=== PATIENT | female | born 1965 | race American Indian/Alaskan Native ===

== ENCOUNTER 2021-03-15 03:19 | Inpatient (IN) | payer OTHER ==
[~2021-03-15 03:19] MED LIST: PANTOPRAZOLE 40 MG INJ IV ONE; SODIUM CHLORIDE 0.9% 500 ML 500 ML ONE; dilTIAZem 25 MG/5 ML INJ ONE; dilTIAZem 30 MG TAB ONE
--- NOTE | 2021-03-15 04:33 | Emergency Department Report ---
ED General Adult HPI - General Chief complaint: Weakness Stated complaint: Weakness, fatigue, sinking feeling in my stomach PUI?: No Source: patient, RN notes reviewed Mode of arrival: Stretcher Limitations: No Limitations - History of Present Illness Initial comments: The patient is a 55-year-old female. She is not known to myself previously. She does not have a primary care doctor. She tells me "I do not go to doctors." She does not have long-term medical problems that she is aware of. She presents to the ER with a complaint of malaise, fatigue, weakness, epigastric discomfort. Symptoms present for a few weeks. Denies headache, neck pain, chest pain. Has mild shortness of breath. No hematemesis of bright red blood per rectum. No travel, surgery, immobilization, DVT or pulmonary embolism risk factors. No urinary symptoms. Has not lost taste or smell. Symptoms constant. Worse on physical exertion. They decreased with rest. -: Gradual, week(s) Consistency: constant Improves with: eating, rest Worsens with: movement - Related Data Home Medications Medication Instructions Recorded Confirmed Last Taken No Known Home Medications [No 03/15/21 03/15/21 Unknown Reported Home Medications] Allergies Allergy/AdvReac Type Severity Reaction Status Date / Time No Known Allergies Allergy Verified 03/15/21 05:50 ED Review of Systems ROS: Stated complaint: Other details as noted in HPI Constitutional: malaise, weakness Eyes: denies: eye discharge ENT: denies: epistaxis Respiratory: denies: cough Cardiovascular: palpitations. denies: chest pain, syncope Gastrointestinal: denies: hematemesis, melena, hematochezia Genitourinary: denies: dysuria Musculoskeletal: denies: back pain Neurological: weakness Psychiatric: anxiety Hematological/Lymphatic: denies: easy bleeding ED Past Medical Hx - Medications Home Medications: Home Medications Medication Instructions Recorded Confirmed Last Taken Type No Known Home Medications [No 03/15/21 03/15/21 Unknown History Reported Home Medications] ED Physical Exam - General Limitations: No Limitations General appearance: alert, anxious - Head Head exam: Present: atraumatic, normocephalic - Eye Eye exam: Present: normal appearance, EOMI. Absent: nystagmus - ENT ENT exam: Present: normal exam, normal orophraynx, mucous membranes moist, normal external ear exam - Neck Neck exam: Present: normal inspection, full ROM. Absent: tenderness, meningismus - Respiratory Respiratory exam: Present: normal lung sounds bilaterally. Absent: respiratory distress, wheezes, rales, rhonchi, stridor, decreased breath sounds - Cardiovascular Cardiovascular Exam: Present: tachycardia, irregular rhythm. Absent: systolic murmur, diastolic murmur, rubs, gallop - GI/Abdominal GI/Abdominal exam: Present: soft. Absent: distended, tenderness, guarding, rebound, rigid, pulsatile mass - Extremities Exam Extremities exam: Present: normal inspection, full ROM, other (2+ pulses noted in the bilateral upper and lower extremities. There is no palpable cord. negative Homans sign. Muscular compartments are soft. The pelvis is stable.). Absent: pedal edema, calf tenderness - Back Exam Back exam: Present: normal inspection, full ROM. Absent: tenderness, CVA tenderness (R), CVA tenderness (L), paraspinal tenderness, vertebral tenderness - Neurological Exam Neurological exam: Present: alert, oriented X3, other (No facial droop. Tongue midline. Extraocular movements intact bilaterally. Facial sensation intact to light touch in V1, V2, V3 distribution bilaterally. 5 and a 5 strength in 4 extremities. Sensation intact to light touch in 4 extremities.). Absent: motor sensory deficit - Psychiatric Psychiatric exam: Present: anxious - Skin Skin exam: Present: warm, dry, intact, normal color. Absent: rash ED Course Vital Signs 03/15/21 03/15/21 03/15/21 02:15 02:30 02:46 Temperature Pulse Rate 128 H 121 H 118 H Respiratory 19 17 25 H Rate Blood Pressure 146/117 146/117 156/119 Blood Pressure [Left] O2 Sat by Pulse 97 99 98 Oximetry 03/15/21 03/15/21 03/15/21 03:00 03:16 03:20 Temperature 97.8 F Pulse Rate 143 H 139 H 135 H Respiratory 21 23 24 Rate Blood Pressure 147/116 145/115 Blood Pressure 157/74 [Left] O2 Sat by Pulse 99 99 96 Oximetry 03/15/21 03/15/21 03/15/21 03:30 03:45 04:01 Temperature Pulse Rate 93 H 60 65 Respiratory 30 H 21 23 Rate Blood Pressure 157/124 156/119 132/94 Blood Pressure [Left] O2 Sat by Pulse 97 98 96 Oximetry 03/15/21 03/15/21 03/15/21 04:15 04:31 04:45 Temperature Pulse Rate 80 71 88 Respiratory 23 23 23 Rate Blood Pressure 120/85 130/92 127/95 Blood Pressure [Left] O2 Sat by Pulse 95 96 95 Oximetry 03/15/21 03/15/21 03/15/21 05:01 05:15 05:30 Temperature Pulse Rate 91 H 88 110 H Respiratory 21 22 19 Rate Blood Pressure 135/93 120/93 120/93 Blood Pressure [Left] O2 Sat by Pulse 95 96 100 Oximetry 03/15/21 03/15/21 03/15/21 06:01 06:15 06:31 Temperature Pulse Rate 76 88 87 Respiratory 23 22 22 Rate Blood Pressure 141/92 141/102 139/94 Blood Pressure [Left] O2 Sat by Pulse 98 96 95 Oximetry 03/15/21 03/15/21 03/15/21 06:45 07:15 07:31 Temperature Pulse Rate 90 92 H 93 H Respiratory 21 23 19 Rate Blood Pressure 137/101 150/114 140/111 Blood Pressure [Left] O2 Sat by Pulse 95 98 98 Oximetry 03/15/21 03/15/21 03/15/21 07:45 08:01 08:05 Temperature Pulse Rate 141 H 105 H 122 H Respiratory 23 25 H Rate Blood Pressure 140/102 139/100 Blood Pressure [Left] O2 Sat by Pulse 92 97 Oximetry - Reevaluation(s) Reevaluation #1: 03/15/21 05:22 Tachycardia resolved. Blood pressure acceptable. Hospital physician, Dr. Judy Albert to admit to [facility] ED Medical Decision Making - Lab Data Result diagrams: 03/15/21 03:00 03/15/21 03:00 Sodium: 136/potassium: 4.74/chloride: 104.2/CO2 20/BUN: 14/creatinine 0.6/glucose 9.3/magnesium 1.8/TSH 1.10 White blood cell count: 5.4, hemoglobin 13.7, hematocrit 41, platelet count 203 Vital Signs 03/15/21 03/15/21 03/15/21 02:15 02:30 02:46 Temperature Pulse Rate 128 H 121 H 118 H Respiratory 19 17 25 H Rate Blood Pressure 146/117 146/117 156/119 Blood Pressure [Left] O2 Sat by Pulse 97 99 98 Oximetry 03/15/21 03/15/21 03/15/21 03:00 03:16 03:20 Temperature 97.8 F Pulse Rate 143 H 139 H 135 H Respiratory 21 23 24 Rate Blood Pressure 147/116 145/115 Blood Pressure 157/74 [Left] O2 Sat by Pulse 99 99 96 Oximetry 03/15/21 03/15/21 03/15/21 03:30 03:45 04:01 Temperature Pulse Rate 93 H 60 65 Respiratory 30 H 21 23 Rate Blood Pressure 157/124 156/119 132/94 Blood Pressure [Left] O2 Sat by Pulse 97 98 96 Oximetry 03/15/21 03/15/21 03/15/21 04:15 04:31 04:45 Temperature Pulse Rate 80 71 88 Respiratory 23 23 23 Rate Blood Pressure 120/85 130/92 127/95 Blood Pressure [Left] O2 Sat by Pulse 95 96 95 Oximetry 03/15/21 03/15/21 03/15/21 05:01 05:15 05:30 Temperature Pulse Rate 91 H 88 110 H Respiratory 21 22 19 Rate Blood Pressure 135/93 120/93 120/93 Blood Pressure [Left] O2 Sat by Pulse 95 96 100 Oximetry 03/15/21 03/15/21 03/15/21 06:01 06:15 06:31 Temperature Pulse Rate 76 88 87 Respiratory 23 22 22 Rate Blood Pressure 141/92 141/102 139/94 Blood Pressure [Left] O2 Sat by Pulse 98 96 95 Oximetry 03/15/21 03/15/21 03/15/21 06:45 07:15 07:31 Temperature Pulse Rate 90 92 H 93 H Respiratory 21 23 19 Rate Blood Pressure 137/101 150/114 140/111 Blood Pressure [Left] O2 Sat by Pulse 95 98 98 Oximetry 03/15/21 03/15/21 03/15/21 07:45 08:01 08:05 Temperature Pulse Rate 141 H 105 H 122 H Respiratory 23 25 H Rate Blood Pressure 140/102 139/100 Blood Pressure [Left] O2 Sat by Pulse 92 97 Oximetry Lab Results 03/15/21 03/15/21 03/15/21 Range/Units 03:00 03:00 03:00 WBC 5.4 (4.5-11.0) K/mm3 RBC 4.68 (3.65-5.03) M/mm3 Hgb 13.7 (10.1-14.3) gm/dl Hct 41.0 (30.3-42.9) % MCV 88 (79-97) fl MCH 29 (28-32) pg MCHC 34 (30-34) % RDW 14.0 (13.2-15.2) % Plt Count 203 (140-440) K/mm3 Lymph % (Auto) 27.1 (13.4-35.0) % [place] % (Auto) 5.0 (0.0-7.3) % Eos % (Auto) 0.5 (0.0-4.3) % Baso % (Auto) 0.8 (0.0-1.8) % Lymph # (Auto) 1.5 (1.2-5.4) K/mm3 [place] # (Auto) 0.3 (0.0-0.8) K/mm3 Eos # (Auto) 0.0 (0.0-0.4) K/mm3 Baso # (Auto) 0.0 (0.0-0.1) K/mm3 Seg Neutrophils % 66.6 (40.0-70.0) % Seg Neutrophils # 3.6 (1.8-7.7) K/mm3 PT (12.2-14.9) Sec. INR (0.87-1.13) APTT (24.2-36.6) Sec. Sodium 136 L (137-145) mmol/L Potassium 4.7 (3.6-5.0) mmol/L Chloride 104.2 (98-107) mmol/L Carbon Dioxide 20 L (22-30) mmol/L Anion Gap 17 mmol/L BUN 14 (7-17) mg/dL Creatinine 0.6 (0.6-1.2) mg/dL Estimated GFR > 60 ml/min BUN/Creatinine Ratio 23 % Glucose 93 (65-100) mg/dL Calcium 9.3 (8.4-10.2) mg/dL Magnesium 1.80 (1.7-2.3) mg/dL Total Bilirubin 1.50 H (0.1-1.2) mg/dL AST 31 (5-40) units/L ALT 21 (7-56) units/L Alkaline Phosphatase 69 (35-129) units/L Troponin T < 0.010 (0.00-0.029) ng/mL Total Protein 6.8 (6.3-8.2) g/dL Albumin 4.3 (3.9-5) g/dL Albumin/Globulin Ratio 1.7 % TSH (0.270-4.200) mlU/mL Free T4 (0.76-1.46) ng/dL 03/15/21 03/15/21 Range/Units 03:00 03:00 WBC (4.5-11.0) K/mm3 RBC (3.65-5.03) M/mm3 Hgb (10.1-14.3) gm/dl Hct (30.3-42.9) % MCV (79-97) fl MCH (28-32) pg MCHC (30-34) % RDW (13.2-15.2) % Plt Count (140-440) K/mm3 Lymph % (Auto) (13.4-35.0) % [place] % (Auto) (0.0-7.3) % Eos % (Auto) (0.0-4.3) % Baso % (Auto) (0.0-1.8) % Lymph # (Auto) (1.2-5.4) K/mm3 [place] # (Auto) (0.0-0.8) K/mm3 Eos # (Auto) (0.0-0.4) K/mm3 Baso # (Auto) (0.0-0.1) K/mm3 Seg Neutrophils % (40.0-70.0) % Seg Neutrophils # (1.8-7.7) K/mm3 PT 15.6 H (12.2-14.9) Sec. INR 1.19 H (0.87-1.13) APTT 34.8 (24.2-36.6) Sec. Sodium (137-145) mmol/L Potassium (3.6-5.0) mmol/L Chloride (98-107) mmol/L Carbon Dioxide (22-30) mmol/L Anion Gap mmol/L BUN (7-17) mg/dL Creatinine (0.6-1.2) mg/dL Estimated GFR ml/min BUN/Creatinine Ratio % Glucose (65-100) mg/dL Calcium (8.4-10.2) mg/dL Magnesium (1.7-2.3) mg/dL Total Bilirubin (0.1-1.2) mg/dL AST (5-40) units/L ALT (7-56) units/L Alkaline Phosphatase (35-129) units/L Troponin T (0.00-0.029) ng/mL Total Protein (6.3-8.2) g/dL Albumin (3.9-5) g/dL Albumin/Globulin Ratio % TSH 1.100 (0.270-4.200) mlU/mL Free T4 1.75 H (0.76-1.46) ng/dL - EKG Data -: EKG Interpreted by Me Rate: tachycardia - EKG Data When compared to previous EKG there are: previous EKG unavailable 03/15/21 04:29 EKG #1, interpreted at 01: 40 A. fib, RVR, rate 135 bpm, normal axis, QTC 471 ms, left ventricular hypertrophy, T wave abnormalities. Abnormal EKG. Not a STEMI. EKG #2, interpreted at 03: 36 A. fib, V rate 82 bpm, normal axis, QTC prolonged, 498 ms, left ventricular hypertrophy, question flutter waves noted. Not a STEMI. - Radiology Data Radiology results: report reviewed, image reviewed Portable chest INDICATION: Weakness FINDINGS: Heart is enlarged. No focal consolidation pleural effusion. No pneumothorax. IMPRESSION: Cardiomegaly Signer Name: Surendra Kamara MD Signed: 03/15/2021 2:03 AM Workstation Name: [id number] - Medical Decision Making Differential diagnosis, including but not limited to: Thyroid derangement, electrolyte derangement, A. fib with RVR, dyspepsia Assessment and plan: 55-year-old female, who is afebrile with reassuring vital signs, with the exception of tachycardia, found to be in A. fib with RVR. Initial vital signs show blood pressure 173/108, heart rate 124 bpm, respirations 18/min, temperature 98.8 degrees, with a pulse ox of 100%. Abdomen soft and benign, without rebound, guarding or peritoneal signs. Patient states she does not go to a primary care doctor. Suspect natural history of inadequately treated/managed A. fib with RVR. There may be also a component of dyspepsia. Laboratory studies were fairly unremarkable. We were able to achieve rate control with intravenous and oral diltiazem. Patient will be loaded with Lovenox, 1 mg/kg. Chest x-ray was unremarkable. She will be treated empirically for dyspepsia. Have recommended admission for evaluation of A. fib, of uncertain duration and chronicity. Patient is amenable to this plan of care. Critical Care Time: Yes Critical care time in (mins) excluding proc time.: 45 Critical care attestation.: If time is entered above; I have spent that time in minutes in the direct care of this critically ill patient, excluding procedure time. ED Disposition Clinical Impression: Atrial fibrillation with RVR, Dyspepsia Disposition: OP ADMIT IP TO THIS HOSP Is pt being admited?: Yes Does the pt Need Aspirin: No Condition: Good
[2021-03-15] MEDS ORDERED: ENOXAPARIN 100 MG/1 ML INJ SUB-Q STA (04:37)
[2021-03-15 06:55] LABS: Alanine Aminotransferase 21 units/L (7-56); Albumin 4.3 g/dL (3.9-5); Basophils % (Auto) 0.8 % (0.0-1.8); Blood Urea Nitrogen 14 mg/dL (7-17); Calcium 9.3 mg/dL (8.4-10.2); Eosinophils % (Auto) 0.5 % (0.0-4.3); Free T4 (Free Thyroxine) 1.75 ng/dL (0.76-1.46); Hemoglobin 13.7 gm/dl (10.1-14.3); Hemolysis Index 3; INR 1.19 (0.87-1.13); Lymphocytes # (Auto) 1.5 K/mm3 (1.2-5.4); Lymphocytes % (Auto) 27.1 % (13.4-35.0); Mean Corpuscular HGB Conc 34 % (30-34); Mean Corpuscular Volume 88 fl (79-97); Monocytes # (Auto) 0.3 K/mm3 (0.0-0.8); Partial Thromboplastin Time 34.8 Sec. (24.2-36.6); Platelet Count 203 K/mm3 (140-440); Red Blood Count 4.68 M/mm3 (3.65-5.03)
[2021-03-15 06:56] LABS: BUN/Creatinine Ratio 23
--- NOTE | 2021-03-15 07:36 | History and Physical Report ---
History of Present Illness Date of examination: 03/15/21 Date of admission: 03/15/21 05:22 Chief complaint: Generalized weakness, fatigue, epigastric discomfort 3 to 4 weeks worse since yesterday History of present illness: 55-year-old female patient with significant remote history of A. fib, currently not on any medications, thyroid problems, not on any medications did not see any physician presented to the emergency room with intermittent generalized weakness, fatigue and epigastric discomfort of 3-4 weeks duration. Patient reports that she did not seek medical attention, not on any medications. Patient denies nausea vomiting denies, history of hematemesis or melena Patient is not on any medications Initial work-up in the ED is consistent with A. fib with rapid ventricular rate, heart rate controlled after receiving Cardizem oral. Patient reports that she had A. fib many years ago and was treated with beta- blockers and Xarelto which she discontinued after few months of treatment. Patient was also on some thyroid medications which she stopped taking many years ago. At the time of my evaluation patient denies any chest pain or shortness of breath Only complains of epigastric discomfort epigastric discomfort Past History Past Medical History: atrial fib (Many years ago not on medications), GERD, other (Thyroid problems not on any medications) Past Surgical History: , hysterectomy Social history: denies: smoking, alcohol abuse, prescription drug abuse Family history: hypertension Medications and Allergies Allergies Allergy/AdvReac Type Severity Reaction Status Date / Time No Known Allergies Allergy Verified 03/15/21 05:50 Review of Systems Constitutional: fatigue, weakness Ears, nose, mouth and throat: no nasal congestion, no nasal discharge Cardiovascular: palpitations, lightheadedness, no chest pain, no orthopnea Respiratory: no cough, no shortness of breath Gastrointestinal: abdominal pain (Epigastric discomfort), no nausea, no vomiting, no hematemesis, no melena Genitourinary Female: no flank pain, no dysuria Musculoskeletal: no myalgias, no arthritis Integumentary: no rash, no lesions Neurological: weakness, other (Fatigue) Psychiatric: no anxiety, no depression Endocrine: no cold intolerance, no heat intolerance Hematologic/Lymphatic: no easy bruising, no easy bleeding Allergic/Immunologic: no urticaria, no allergic rhinitis Exam - Constitutional Vitals: Temp Pulse Resp BP Pulse Ox 97.8 F 90 21 137/101 95 03/15/21 03:20 03/15/21 06:45 03/15/21 06:45 03/15/21 06:45 03/15/21 06:45 General appearance: Present: mild distress, well-nourished - EENT Eyes: Present: PERRL, EOM intact - Neck Neck: Present: supple, normal ROM - Respiratory Respiratory effort: normal Respiratory: bilateral: diminished, negative: rales, rhonchi, wheezing - Cardiovascular Rhythm: irregularly irregular Heart Sounds: Present: S1 & S2 - Extremities Extremities: no ischemia, No edema - Abdominal General gastrointestinal: Present: soft, non-tender, non-distended, normal bowel sounds - Integumentary Integumentary: Present: clear, warm - Musculoskeletal Musculoskeletal: strength equal bilaterally - Psychiatric Psychiatric: appropriate mood/affect, cooperative - Neurologic Neurologic: moves all extremities HEART Score - HEART Score Troponin: Troponin T < 0.010 ng/mL (0.00-0.029) 03/15/21 03:00 Results - Labs CBC & Chem 7: 03/15/21 03:00 03/15/21 03:00 Labs: Abnormal lab results 03/15/21 03/15/21 03/15/21 Range/Units 03:00 03:00 03:00 PT 15.6 H (12.2-14.9) Sec. INR 1.19 H (0.87-1.13) Sodium 136 L (137-145) mmol/L Carbon Dioxide 20 L (22-30) mmol/L Total Bilirubin 1.50 H (0.1-1.2) mg/dL Free T4 1.75 H (0.76-1.46) ng/dL Assessment and Plan --A. fib with rapid ventricular rate; on oral Cardizem, rate controlled Continue oral Cardizem, echocardiogram for LV function ejection fraction Full dose Lovenox 1 mg/kg body weight every 12 hours subcu Cardiology consult Patient had history of A. fib many years ago, not on any medications --GERD/dyspepsia; IV Protonix, Maalox Supportive care No hematemesis or melena No nausea vomiting Outpatient GI evaluation upon discharge --Hypothyroidism; Normal TSH, high T4 We will repeat thyroid panel Manage as needed Patient has thyroid problems in the past not on any medications Does not know whether it is hyper or hypo- --DVT prophylaxis; Patient is already on full dose Lovenox subcu twice a day We will closely monitor patient and adjust the management as needed Follow cardiology evaluation and recommendations Plan of care reviewed with the patient and her nurse.
[2021-03-15 07:43] LABS: Bacteria,Urine 1+ /HPF (Negative); Bilirubin,Urine NEG (Negative); Blood,Urine NEG (Negative); Color,Urine Yellow (Yellow); Protein,Urine <15 mg/dL mg/dL (Negative); Urobilinogen,Urine < 2.0 mg/dL (<2.0)
[2021-03-15] MEDS ORDERED: ACETAMINOPHEN 325 MG TAB PO PRN (07:48)
[2021-03-15 07:50] LABS: HCG Qualitative,Urine Negative (Negative)
[2021-03-15] MEDS ORDERED: PANTOPRAZOLE 40 MG TAB PO SCH (08:00)
[2021-03-15] MEDS ORDERED: SODIUM CHLORIDE 0.9% 1000 ML 1,000 ML IV SCH (08:00)
--- NOTE | 2021-03-15 09:25 | XRay Report ---
Portable chest INDICATION: Weakness FINDINGS: Heart is enlarged. No focal consolidation pleural effusion. No pneumothorax. IMPRESSION: Cardiomegaly Signer Name: Surendra Kamara MD Signed: 03/15/2021 3:03 AM Workstation Name: [id number]
[2021-03-15] MEDS ORDERED: ALUM-MAG HYDROXIDE-SIMETHICONE 200-200-20MG/5ML ORAL LIQD 30 ML PO PRN (10:00)
[2021-03-15] MEDS ORDERED: dilTIAZem 30 MG TAB PO SCH (12:00)
[2021-03-15 14:31] LABS: Free T4 (Free Thyroxine) 1.48 ng/dL (0.76-1.46)
[2021-03-15] MEDS: PANTOPRAZOLE 40 MG INJ IV SCH ×2 (16:49→22:25)
--- NOTE | 2021-03-15 17:15 | Consultation ---
History of Present Illness Consult date: 03/15/21 Requesting physician: AGUSTIN ROJAS Consult reason: atrial fibrillation History of present illness: Ruled outThis patient is a 55-year-old female with a significant history of atrial fibrillation, thyroid disorder, noncompliance she is previously unknown to our practice and does not follow with cardiology or PCP. Patient presents to [facility] ER with complaint of sharp epigastric pain x3 to 4 weeks in duration. Patient suspects gastric ulcer and states pain is alleviated with starchy foods and exacerbated when hungry. Cardiology is consulted for atrial fibrillation with RVR as noted on telemetry. At time of interview patient states she has known history of paroxysmal A. fib that is t riggered in times of stress. She has previously been prescribed beta-eber and Xarelto for several months and 2017 but has been noncompliant and has not followed up. Patient prefers holistic therapy approaches. At time of interview patient denies any weakness, dizziness, shortness of breath, chest pain, abdominal pain, N/V/D, recent illness or known exposures. Past History Past Medical History: atrial fib (Many years ago not on medications), GERD, oth er (See HPI) Past Surgical History: , hysterectomy Social history: denies: smoking, alcohol abuse, prescription drug abuse Family history: hypertension Medications and Allergies Allergies Allergy/AdvReac Type Severity Reaction Status Date / Time No Known Allergies Allergy Verified 03/15/21 05:50 Home Medications Medication Instructions Recorded Confirmed Last Taken Type No Known Home Medications [No 03/15/21 03/15/21 Unknown History Reported Home Medications] Active Meds: Active Medications Acetaminophen (Acetaminophen 325 Mg Tab) 650 mg PO Q4H PRN PRN Reason: Pain, Mild (1-3) Al Hydrox/Mg Hydrox/Simethicone (Alum-Mag Hydroxide-Simethicone [id number]/5ml Oral Liqd 30 Ml) 15 ml PO Q4H PRN PRN Reason: Indigestion Diltiazem HCl (Diltiazem 30 Mg Tab) 30 mg PO Q6HR LYUBOV Last Admin: 03/15/21 16:49 Dose: 30 mg Documented by: Enoxaparin Sodium (Enoxaparin 60 Mg/0.6 Ml Inj) 60 mg SUB-Q Q12HR LYUBOV; Protocol Sodium Chloride (Nacl 0.9% 1000 Ml) 1,000 mls @ 100 mls/hr IV DIRECT LYUBOV Pantoprazole Sodium (Pantoprazole 40 Mg Inj) 40 mg IV BID [facility] Last Admin: 03/15/21 16:49 Dose: 40 mg Documented by: Review of Systems Constitutional: no weight loss, no weight gain, no fever, no chills, no sweats Ears, nose, mouth and throat: no ear pain, no ear discharge, no nasal congestion, no nasal discharge, no sinus pressure Cardiovascular: palpitations, no chest pain, no orthopnea, no rapid/irregular heart beat, no edema, no syncope, no lightheadedness, no shortness of breath Respiratory: no cough, no hemoptysis, no shortness of breath, no dyspnea on exertion Gastrointestinal: abdominal pain, no nausea, no vomiting, no diarrhea, no hematemesis, no BRBPR, no melena Genitourinary Female: no flank pain Musculoskeletal: no neck stiffness, no neck pain, no shooting arm pain, no arm n umbness/tingling, no low back pain, no shooting leg pain Integumentary: no rash, no pruritis, no redness, no sores, no wounds Neurological: no head injury, no paralysis, no weakness, no parathesias, no numbness, no tingling, no seizures, no syncope Psychiatric: anxiety Endocrine: no cold intolerance, no heat intolerance Hematologic/Lymphatic: no easy bruising, no easy bleeding Allergic/Immunologic: no urticaria Physical Examination Last Vital Signs Temp 97.8 F 03/15/21 03:20 Pulse 122 H 03/15/21 08:05 Resp 25 H 03/15/21 08:01 BP 140/96 03/15/21 10:11 Pulse Ox 87 03/15/21 10:11 General appearance: no acute distress HEENT: Positive: PERRL, Normocephaly, Mucus Membranes Moist Neck: Positive: neck supple, trachea midline Cardiac: Positive: Reg Rate and Rhythm, S1/S2 Lungs: Positive: Normal Exam, Normal Breath Sounds Neuro: Positive: Grossly Intact Abdomen: Positive: Unremarkable, Soft Skin: Negative: Rash, Wound Musculoskeletal: No Pain Extremities: Present: upper extr. pulses, lower extr. pulses. Absent: edema Results 03/15/21 03:00 03/15/21 03:00 Cardiac Enzymes 03/15/21 Range/Units 03:00 AST 31 (5-40) units/L Coagulation 03/15/21 Range/Units 03:00 PT 15.6 H (12.2-14.9) Sec. INR 1.19 H (0.87-1.13) APTT 34.8 (24.2-36.6) Sec. CBC 03/15/21 Range/Units 03:00 WBC 5.4 (4.5-11.0) K/mm3 RBC 4.68 (3.65-5.03) M/mm3 Hgb 13.7 (10.1-14.3) gm/dl Hct 41.0 (30.3-42.9) % Plt Count 203 (140-440) K/mm3 Lymph # (Auto) 1.5 (1.2-5.4) K/mm3 [place] # (Auto) 0.3 (0.0-0.8) K/mm3 Eos # (Auto) 0.0 (0.0-0.4) K/mm3 Baso # (Auto) 0.0 (0.0-0.1) K/mm3 Comprehensive Metabolic Panel 03/15/21 Range/Units 03:00 Sodium 136 L (137-145) mmol/L Potassium 4.7 (3.6-5.0) mmol/L Chloride 104.2 (98-107) mmol/L Carbon Dioxide 20 L (22-30) mmol/L BUN 14 (7-17) mg/dL Creatinine 0.6 (0.6-1.2) mg/dL Glucose 93 (65-100) mg/dL Calcium 9.3 (8.4-10.2) mg/dL AST 31 (5-40) units/L ALT 21 (7-56) units/L Alkaline Phosphatase 69 (35-129) units/L Total Protein 6.8 (6.3-8.2) g/dL Albumin 4.3 (3.9-5) g/dL - Imaging and Cardiology Echo: pending EKG: report reviewed, image reviewed EKG interpretations - Telemetry EKG Rhythm: Atrial Fibrillation - EKG Supraventricular dysrhythmia: atrial fibrillation Assessment and Plan Atrial fibrillation with RVR * Patient is currently chest pain-free with no cardiac complaints. Twelve-lead reviewed shows atrial fibrillation with RVR, no acute ischemic changes. Troponin is negative x1. Continue to trend CE's * Echocardiogram is pending * Patient is currently on Lovenox therapeutic dose * Optimize rate control: Discontinue Cardizem, initiate metoprolol 25 mg twice daily Dyspepsia * Management per primary team. No plans for inpatient endoscopy at this point DVT prophylaxis * Lovenox SQ Echocardiogram is pending. Plan to transition to NOAC once planned procedures are known. Will follow Patient should follow-up with Dr Judy Pearson, [facility] specialists within 1 to 2 weeks of discharge. #[phone] This patient was seen in conjunction with Dr Judy Pearson who agrees with this assessment plan of care - Patient Problems (1) DVT prophylaxis Current Visit: Yes Status: Acute (2) Atrial fibrillation with RVR Current Visit: Yes Status: Acute (3) Dyspepsia Current Visit: Yes Status: Acute
[2021-03-15] MEDS ORDERED: METOPROLOL TARTRATE 25 MG TAB PO SCH (22:00)
[2021-03-15] MEDS: METOPROLOL TARTRATE 25 MG TAB PO SCH ×2 (22:25→22:26)
[2021-03-15] MEDS: ENOXAPARIN 60 MG/0.6 ML INJ SUB-Q SCH (22:28)
[2021-03-16] MEDS: METOPROLOL TARTRATE 25 MG TAB PO SCH ×3 (03:31→21:16)
[2021-03-16] MEDS: PANTOPRAZOLE 40 MG INJ IV SCH ×2 (09:12→21:15)
[2021-03-16] MEDS: ENOXAPARIN 60 MG/0.6 ML INJ SUB-Q SCH ×2 (09:13→19:02)
--- NOTE | 2021-03-16 09:34 | Cat Scan Report ---
CT abdomen pelvis w con INDICATION: severe abd pain 100 ML OMNI 300 . COMPARISON: None TECHNIQUE: Abdominal and pelvic CT exam performed. All CT scans at this location are performed using CT dose reduction for ALARA by means of automated exposure control. FINDINGS: CT ABDOMEN and PELVIS: Lung Bases: Cardiomegaly. Moderate right greater than left pleural effusions. Interlobular septal thi ckening. Liver: No significant abnormality. Biliary: No significant abnormality. Spleen: No significant abnormality. Pancreas: No significant abnormality. Adrenals: No significant abnormality. Kidneys: No significant abnormality. Lymphatics: No lymphadenopathy. Vasculature: No significant abnormality. Bowel: No significant abnormality. Appendix is nonvisualized. However, no inflammatory changes in th e right lower quadrant to suggest appendicitis. Pelvis: Small quantity of free fluid in the pelvis. No significant abnormality. Osseous Structures: No aggressive osseous lesion. Additional Findings: None IMPRESSION: 1. . BILATERAL RIBS HISTORY: COMPARISON: None. TECHNIQUE: 2 views of the ribs were obtained. FINDINGS: Bones: No fracture or dislocation. Joint spaces: Maintained. Soft tissues: No significant abnormality. Additional findings: None. IMPRESSION: 1. Cardiomegaly with bilateral effusions and interstitial edema. No acute abnormality of the abdomen or pelvis. Signer Name: Jeremi Edwards MD Signed: 03/16/2021 9:29 AM Workstation Name: [id number]
--- NOTE | 2021-03-16 12:23 | Progress Note ---
Assessment and Plan Echo reviewed - EF 20-25%, LV mildly dilated, LA mildly dilated, RA mildly dilated, mild AR, moderate MR, moderate TR, moderate pulm HTN w/RVSP 46mmHg. Plan for LHC in AM. Pt is agreeable. NPO after midnight. Hold SQ Lovenox for now. Will revisit anticoagulation for AF following cardiac catheterization. Continue BB as tolerated. Will consider initiation of ACEI/ARB/ARNI when BP permits. Recommend discontinuation of IV fluids. Will give IV Lasix 40mg x 1. Continue strict I/Os. Pt appears near euvolemia upon assessment. Plan of care d/w pt's sisters. All questions answered. Pt seen in conjunction with Dr. Judy Pearson, who agrees with the assessment and plan of care. - Patient Problems (1) Pleural effusion, bilateral Current Visit: Yes Status: Acute (2) Cardiomyopathy Current Visit: Yes Status: Acute (3) Pulmonary HTN Current Visit: Yes Status: Chronic (4) Moderate mitral regurgitation Current Visit: Yes Status: Chronic (5) Atrial fibrillation Current Visit: Yes Status: Chronic Qualifiers: Atrial fibrillation type: unspecified chronic Qualified Code(s): I48.20 - Chronic atrial fibrillation, unspecified; I48.2 - Chronic atrial fibrillation (6) Thyroid disease Current Visit: Yes Status: Chronic (7) Epigastric pain Current Visit: Yes Status: Acute (8) GERD (gastroesophageal reflux disease) Current Visit: Yes Status: Chronic Subjective Date of service: 03/16/21 Principal diagnosis: Newly Diagnosed CMP (EF 10-15%) Interval history: C/o burning epigastric discomfort. Mild SOB noted; however, pt believes this is from "a gastric ulcer." She is not orthopneic upon exam. No additional cardiac complaints. Tele reviewed - AF 80-90s, no events overnight. Objective Last Vital Signs Temp 98.3 F 03/16/21 08:36 Pulse 100 H 03/16/21 10:00 Resp 20 03/16/21 08:36 BP 127/97 03/16/21 08:36 Pulse Ox 99 03/16/21 08:36 - Physical Examination General: No Apparent Distress HEENT: Positive: EOMI, Normocephaly, Mucus Membranes Moist Neck: Positive: neck supple, trachea midline. Negative: JVD/HJR Cardiac: Positive: irregularly irregular, S1/S2 Lungs: Positive: Other (diminished bases) Neuro: Positive: Grossly Intact Abdomen: Positive: Soft Skin: Negative: Rash, Wound Musculoskeletal: No Pain Extremities: Present: upper extr. pulses, lower extr. pulses. Absent: edema - Imaging and Cardiology EKG: report reviewed, image reviewed Echo: report reviewed (03/15/2021 - EF 20-25%, LV mildly dilated, LA mildly dilated, RA mildly dilated, mild AR, moderate MR, moderate TR, moderate pulm HTN w/RVSP 46mmHg) Cardiac cath: pending - Telemetry EKG Rhythm: Atrial Fibrillation - EKG Supraventricular dysrhythmia: atrial fibrillation
[2021-03-16] MEDS ORDERED: FUROSEMIDE 40 MG/4 ML INJ IV NR (12:37)
[2021-03-16] MEDS ORDERED: SODIUM CHLORIDE 0.9% 500 ML 500 ML IV SCH (13:00)
--- NOTE | 2021-03-16 14:06 | Electrocardiograph Report ---
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
--- NOTE | 2021-03-16 15:08 | Progress Note ---
Assessment and Plan Assessment and plan: --A. fib with rapid ventricular rate; Rate controlled, continue metoprolol Full dose Lovenox[ Lovenox held pending left heart cath tomorrow --Dilated cardiomyopathy; EF 20 to 25%, dilated LV RV chambers Antifailure medications, diuretic, beta-blockers, CAIN inhibitors If patient blood pressure permits and okay with cardiology Cardiology following --Acute systolic congestive heart failure; EF 20 to 25% Continue antifailure medications if blood pressures permit Cardiology planning ischemia work-up with tentative left heart catheterization scheduled tomorrow Patient is still not convinced that she has any heart problems concerned about her epigastric pain --Acute gastritis/epigastric pain/dyspepsia Denies nausea' vomiting. Denies hematemesis or melena IV Protonix. Maalox. Patient really wanted to see curve saw operator We will consult on-call GI for evaluation and management of pts GI symptoms --History of hypothyroidism; not on any medications Normal TSH, high T4, We will repeat thyroid panel --DVT prophylaxis; SCDs, Lovenox discontinued per cardiology pending left heart catheterization tomorrow We will closely monitor patient and adjust the management as needed Follow cardiology evaluation and recommendations Plan of care reviewed with the patient, on with sister on the phone and her nurse. Patient not convinced that she has any problems with her heart. She is only concerned about her epigastric pain and requested to be seen by GI We will consult on-call GI. Patient Ms. Lucas White had numerous questions, still not convinced that she has cardiomyopathy and A. fib Even after explaining in detail by the lead software qa engineer and I spent a lot of time explaining, each test And reports of chest x-ray, CT abdomen and pelvis, echocardiogram, cardiology recommendations/ Patient does not believe that she has any heart problem. I discussed with the patient when patient sister is on speaker phone History Interval history: --A. fib with rapid ventricular rate; on oral Cardizem, rate controlled Continue oral Cardizem, echocardiogram for LV function ejection fraction Full dose Lovenox 1 mg/kg body weight every 12 hours subcu Cardiology consult Patient had history of A. fib many years ago, not on any medications --GERD/dyspepsia; IV Protonix, Maalox Supportive care No hematemesis or melena No nausea vomiting Outpatient GI evaluation upon discharge --Hypothyroidism; Normal TSH, high T4 We will repeat thyroid panel Manage as needed Patient has thyroid problems in the past not on any medications Does not know whether it is hyper or hypo- --DVT prophylaxis; Patient is already on full dose Lovenox subcu twice a day We will closely monitor patient and adjust the management as needed Follow cardiology evaluation and recommendations Plan of care reviewed with the patient and her nurse. Hospitalist Physical - Constitutional Vitals: Temp Pulse Resp BP Pulse Ox 98.3 F 100 H 20 127/97 99 03/16/21 08:36 03/16/21 10:00 03/16/21 08:36 03/16/21 08:36 03/16/21 08:36 General appearance: Present: mild distress, well-nourished - EENT Eyes: Present: PERRL, EOM intact - Neck Neck: Present: supple, normal ROM - Respiratory Respiratory effort: normal Respiratory: bilateral: diminished, rales, negative: rhonchi, wheezing - Cardiovascular Rhythm: regular Heart Sounds: Present: S1 & S2 - Extremities Extremities: no ischemia, No edema - Abdominal General gastrointestinal: soft, non-tender, non-distended - Integumentary Integumentary: Present: clear, warm - Psychiatric Psychiatric: appropriate mood/affect, cooperative - Neurologic Neurologic: CNII-XII intact, moves all extremities HEART Score - HEART Score Troponin: Troponin T < 0.010 ng/mL (0.00-0.029) 03/15/21 12:39 Results - Labs CBC & Chem 7: 03/15/21 03:00 03/15/21 03:00 Labs: Laboratory Last Values WBC 5.4 K/mm3 (4.5-11.0) 03/15/21 03:00 RBC 4.68 M/mm3 (3.65-5.03) 03/15/21 03:00 Hgb 13.7 gm/dl (10.1-14.3) 03/15/21 03:00 Hct 41.0 % (30.3-42.9) 03/15/21 03:00 MCV 88 fl (79-97) 03/15/21 03:00 MCH 29 pg (28-32) 03/15/21 03:00 MCHC 34 % (30-34) 03/15/21 03:00 RDW 14.0 % (13.2-15.2) 03/15/21 03:00 Plt Count 203 K/mm3 (140-440) 03/15/21 03:00 Lymph % (Auto) 27.1 % (13.4-35.0) 03/15/21 03:00 [place] % (Auto) 5.0 % (0.0-7.3) 03/15/21 03:00 Eos % (Auto) 0.5 % (0.0-4.3) 03/15/21 03:00 Baso % (Auto) 0.8 % (0.0-1.8) 03/15/21 03:00 Lymph # (Auto) 1.5 K/mm3 (1.2-5.4) 03/15/21 03:00 Stephen[place] # (Auto) 0.3 K/mm3 (0.0-0.8) 03/15/21 03:00 Eos # (Auto) 0.0 K/mm3 (0.0-0.4) 03/15/21 03:00 Baso # (Auto) 0.0 K/mm3 (0.0-0.1) 03/15/21 03:00 Seg Neutrophils % 66.6 % (40.0-70.0) 03/15/21 03:00 Seg Neutrophils # 3.6 K/mm3 (1.8-7.7) 03/15/21 03:00 PT 15.6 Sec. (12.2-14.9) H 03/15/21 03:00 INR 1.19 (0.87-1.13) H 03/15/21 03:00 APTT 34.8 Sec. (24.2-36.6) 03/15/21 03:00 Sodium 136 mmol/L (137-145) L 03/15/21 03:00 Potassium 4.7 mmol/L (3.6-5.0) 03/15/21 03:00 Chloride 104.2 mmol/L (98-107) 03/15/21 03:00 Carbon Dioxide 20 mmol/L (22-30) L 03/15/21 03:00 Anion Gap 17 mmol/L 03/15/21 03:00 BUN 14 mg/dL (7-17) 03/15/21 03:00 Creatinine 0.6 mg/dL (0.6-1.2) 03/15/21 03:00 Estimated GFR > 60 ml/min 03/15/21 03:00 BUN/Creatinine Ratio 23 % 03/15/21 03:00 Glucose 93 mg/dL (65-100) 03/15/21 03:00 Calcium 9.3 mg/dL (8.4-10.2) 03/15/21 03:00 Magnesium 1.80 mg/dL (1.7-2.3) 03/15/21 03:00 Total Bilirubin 1.50 mg/dL (0.1-1.2) H 03/15/21 03:00 AST 31 units/L (5-40) 03/15/21 03:00 ALT 21 units/L (7-56) 03/15/21 03:00 Alkaline Phosphatase 69 units/L (35-129) 03/15/21 03:00 Troponin T < 0.010 ng/mL (0.00-0.029) 03/15/21 12:39 Total Protein 6.8 g/dL (6.3-8.2) 03/15/21 03:00 Albumin 4.3 g/dL (3.9-5) 03/15/21 03:00 Albumin/Globulin Ratio 1.7 % 03/15/21 03:00 TSH 0.689 mlU/mL (0.270-4.200) 03/15/21 12:39 Free T4 1.48 ng/dL (0.76-1.46) H 03/15/21 12:39 Urine Color Yellow (Yellow) 03/15/21 05:46 Urine Turbidity Clear (Clear) 03/15/21 05:46 Urine pH 5.0 (5.0-7.0) 03/15/21 05:46 Ur Specific [place] 1.009 (1.003-1.030) 03/15/21 05:46 Urine Protein <15 mg/dl mg/dL (Negative) 03/15/21 05:46 Urine Glucose (UA) Neg mg/dL (Negative) 03/15/21 05:46 Urine Ketones Tr mg/dL (Negative) 03/15/21 05:46 Urine Blood Neg (Negative) 03/15/21 05:46 Urine Nitrite Neg (Negative) 03/15/21 05:46 Urine Bilirubin Neg (Negative) 03/15/21 05:46 Urine Urobilinogen < 2.0 mg/dL (<2.0) 03/15/21 05:46 Ur Leukocyte Esterase Neg (Negative) 03/15/21 05:46 Urine WBC (Auto) Not Reportable 03/15/21 05:46 Urine RBC (Auto) 3.0 /HPF (0.0-6.0) 03/15/21 05:46 U Epithel Cells (Auto) 4.0 /HPF (0-13.0) 03/15/21 05:46 Urine Bacteria (Auto) 1+ /HPF (Negative) 03/15/21 05:46 Urine HCG, Qual Negative (Negative) 03/15/21 05:46 [place]/IV: Voiding Method Toilet Active Medications - Current Medications Current Medications: Generic Name Dose Route Start Last Admin Trade Name Freq PRN Reason Stop Dose Admin Acetaminophen 650 mg 03/15/21 07:48 03/16/21 03:27 Acetaminophen 325 Mg Tab PO 650 mg Q4H PRN Administration Pain, Mild (1-3) Al Hydrox/Mg Hydrox/Simethicone 15 ml 03/15/21 10:00 Alum-Mag Hydroxide-Simethicone [id number]/5ml Oral Liqd 30 Ml PO Q4H PRN Indigestion Aspirin 81 mg 03/17/21 10:00 Aspirin 81 Mg Tab Chew PO QDAY LYUBOV Furosemide 40 mg 03/16/21 12:37 Furosemide 40 Mg/4 Ml Inj IV 03/16/21 15:30 ONCE NR Metoprolol Tartrate 25 mg 03/15/21 17:30 03/16/21 09:13 Metoprolol Tartrate 25 Mg Tab PO 25 mg BID LYUBOV Administration Pantoprazole Sodium 40 mg 03/15/21 10:00 03/16/21 09:12 Pantoprazole 40 Mg Inj IV 40 mg BID LYUBOV Administration
--- NOTE | 2021-03-16 16:41 | Gastroenterology Consultation ---
History of Present Illness - Reason for Consult Consult date: 03/16/21 abdominal pain Requesting physician: AGUSTIN ROJAS - History of Present Illness This is a 55 yo female with pmh of afib admitted on 03/15/2021 for abdominal pain, sob, and fatigue. GI consulted for abdominal pain and indigestion. Patient reports having worsening epigastric burning pain for the past 1 week along with nausea. She has been having this pain for some time prior but severity has wors ened over the past 1 week. Pain is worse with fasting and somewhat better with certain foods. She looked up diet for ulcer and changed her diet. She also took OTC antiacids without much relief. She also reports having sob with walking, exertions, and fatigue. She also cannot lay flat. She has had diarrhea prior to admission but no melena or blood in the stools. She had formed stool today. No prior EGD or colonoscopy. Work up so far showed afib with RVR, TTE showing new cardiomyopathy with EF 20- 25%. Cardiology plans for [facility]. Medication list reviewed. Past History Past Medical History: atrial fib (Many years ago not on medications), GERD, other (Thyroid problems not on any medications) Past Surgical History: , hysterectomy Social history: denies: smoking, alcohol abuse, prescription drug abuse Family history: hypertension Medications and Allergies Allergies Allergy/AdvReac Type Severity Reaction Status Date / Time No Known Allergies Allergy Verified 03/15/21 05:50 Home Medications Medication Instructions Recorded Confirmed Last Taken Type No Known Home Medications [No 03/15/21 03/15/21 Unknown History Reported Home Medications] Active Meds: Active Medications Acetaminophen (Acetaminophen 325 Mg Tab) 650 mg PO Q4H PRN PRN Reason: Pain, Mild (1-3) Last Admin: 03/16/21 03:27 Dose: 650 mg Documented by: Al Hydrox/Mg Hydrox/Simethicone (Alum-Mag Hydroxide-Simethicone [id number]/5ml Oral Liqd 30 Ml) 15 ml PO Q4H PRN PRN Reason: Indigestion Aspirin (Aspirin 81 Mg Tab Chew) 81 mg PO QDAY [facility] Metoprolol Tartrate (Metoprolol Tartrate 25 Mg Tab) 25 mg PO BID [facility] Last Admin: 03/16/21 09:13 Dose: 25 mg Documented by: Pantoprazole Sodium (Pantoprazole 40 Mg Inj) 40 mg IV BID LYUBOV Last Admin: 03/16/21 09:12 Dose: 40 mg Documented by: Review of Systems - Review of Systems Constitutional: weight loss, no weight gain, no fever Cardiovascular: shortness of breath, no chest pain Respiratory: shortness of breath Gastrointestinal: abdominal pain, nausea, diarrhea, no vomiting, no hematemesis, no coffee ground emesis, no melena, no hematochezia Neurological: weakness Endocrine: no cold intolerance Hematologic/Lymphatic: no easy bruising Allergic/Immunologic: no wheezing Exam - Constitutional Vital Signs: Temp Pulse Resp BP Pulse Ox 97.5 F L 68 18 138/97 98 03/16/21 16:19 03/16/21 16:19 03/16/21 16:19 03/16/21 16:19 03/16/21 16:19 General appearance: no acute distress - EENT Eyes: EOM intact ENT: hearing intact - Respiratory Respiratory effort: labored - Gastrointestinal General gastrointestinal: Present: soft, tender, non-distended - Integumentary Integumentary: Absent: jaundice - Neurologic Neurological: alert and oriented x3 - Psychiatric Psychiatric: appropriate mood/affect - Labs CBC & Chem 7: 03/15/21 03:00 03/15/21 03:00 - Imaging CT Scan: report reviewed Assessment and Plan - Patient Problems (1) Epigastric pain Current Visit: Yes Status: Acute Plan to address problem: # Epigastric pain - CT a/p without acute process - ddx including PUD, gastritis Rec - continue with PPI - add sucralfate for symptomatic treatment - hold off EGD given on-going cardiac work up for new diagnosis of cardiomyopathy with EF 20% and likely needing LHC. - discussed with patient, cardiology team, and family by bedside.
[2021-03-16] MEDS ORDERED: ALPRAZolam 0.25 MG TAB PO PRN (17:37)
[2021-03-16] MEDS ORDERED: FUROSEMIDE 40 MG/4 ML INJ IV ONE (22:03)
[2021-03-17 06:24] LABS: Basophils # (Auto) 0.1 K/mm3 (0.0-0.1); Basophils % (Auto) 1.1 % (0.0-1.8); Eosinophils # (Auto) 0.2 K/mm3 (0.0-0.4); Hematocrit 37.7 % (30.3-42.9); Hemoglobin 12.9 gm/dl (10.1-14.3); Lymphocytes # (Auto) 1.9 K/mm3 (1.2-5.4); Lymphocytes % (Auto) 34.9 % (13.4-35.0); Mean Corpuscular HGB Conc 34 % (30-34); Mean Corpuscular Volume 88 fl (79-97); Monocytes # (Auto) 0.4 K/mm3 (0.0-0.8); Monocytes % (Auto) 8.1 % (0.0-7.3); Platelet Count 164 K/mm3 (140-440); Red Blood Count 4.27 M/mm3 (3.65-5.03); Red Cell Distribution Width 14.5 % (13.2-15.2)
[2021-03-17 06:33] LABS: INR 1.07 (0.87-1.13)
[2021-03-17 06:43] LABS: BUN/Creatinine Ratio 15; Blood Urea Nitrogen 12 mg/dL (7-17); Calcium 8.7 mg/dL (8.4-10.2); Hemolysis Index 5
[2021-03-17] MEDS ORDERED: SODIUM CHLORIDE 0.9% 500 ML 500 ML ONE (09:23)
[2021-03-17] MEDS ORDERED: methylPREDNISolone Sod Succinate 125 MG/2 ML INJ IV SCH (09:30)
[2021-03-17] MEDS ORDERED: diphenhydrAMINE 50 MG/ML VIAL IV SCH (09:30)
[2021-03-17] MEDS ORDERED: FAMOTIDINE 20 MG/2 ML INJ IV ONE (09:31)
[2021-03-17] MEDS ORDERED: MIDAZOLAM 2 MG/2 ML INJ ONE (09:40)
[2021-03-17] MEDS ORDERED: HEPARIN 10,000 UNITS/10 ML VIAL ONE (09:41)
[2021-03-17] MEDS ORDERED: fentaNYL 100 MCG/2 ML INJ ONE (09:41)
[2021-03-17] MEDS ORDERED: HEPARIN/NS 5000 UNIT/500ML 1,000 ML IR ONE (09:41)
[2021-03-17] MEDS ORDERED: VERAPAMIL 5 MG/2 ML INJ ONE (09:41)
[2021-03-17] MEDS ORDERED: LIDOCAINE (2%) 20 MG/1 ML VIAL 20 ML MDV INFILTRATI ONE (09:42)
[2021-03-17] MEDS ORDERED: NITROGLYCERIN SYRINGE 3 ML ONE (09:42)
[2021-03-17] MEDS ORDERED: SODIUM CHLORIDE 0.9% 500 ML 500 ML IV SCH (10:00)
[2021-03-17] MEDS ORDERED: FAMOTIDINE 20 MG/2 ML INJ IV SCH (10:00)
[2021-03-17] MEDS ORDERED: HEPARIN/NS 5000 UNIT/500ML 500 ML IR ONE (10:09)
[2021-03-17] MEDS: METOPROLOL TARTRATE 25 MG TAB PO SCH ×2 (11:31→22:16)
[2021-03-17] MEDS: ASPIRIN 81 MG TAB CHEW PO SCH (11:31)
[2021-03-17] MEDS: PANTOPRAZOLE 40 MG INJ IV SCH ×2 (11:31→22:16)
--- NOTE | 2021-03-17 11:46 | Cardiac Catherization Report ---
DATE OF PROCEDURE: 03/17/2021 CARDIAC CATHETERIZATION REFERRING PHYSICIAN: Hospitalist service. INDICATION FOR PROCEDURE: The patient is a pleasant 55-year-old female brought in with new atrial flutter and cardiomyopathy, ejection fraction found to be 20%, referred for left heart catheterization to elucidate and rule out ischemic etiology. Risks, benefits and alternatives discussed at length prior to obtaining informed consent. PROCEDURE DETAIL: The patient was brought to catheterization lab in a postabsorptive state, prepped and draped in sterile fashion. Babak's test in right hand was normal. 2 mL of 2% lidocaine used to anesthetize the right wrist. A standard 6-[place] hydrophilic sheath used to cannulate the right radial artery via modified Seldinger technique. All exchanges performed to exchange a J-tip guidewire. JL3.5 catheter was used to engage the left main. No dampening or ventricularization. Cineangiography performed in all projections. JR4 catheter was used to cross the aortic valve under fluoroscopic guidance. Left ventriculography performed in [address] [place] projections via hand injections, catheter flushed. Manual pullback performed with continuous pressure monitoring. Catheter used to engage the right coronary. No dampening or ventricularization. Cineangiography performed in all projections. Next, catheter removed from the body of wire, sheath removed. Manual pressure used to achieve hemostasis. I directly supervised the administration of moderate sedation with fentanyl and Versed from 10:15 a.m. to 10:40 a.m. No immediate complications identified. DATA: Aortic pressure is 130/90. LV pressure is 130, LVEDP of 17 mmHg. Left ventricle reveals severe global left ventricular akinesis, estimated ejection fraction of 20-25%. No evidence of aortic stenosis. The patient remained in atrial fibrillation with controlled ventricular response throughout the procedure. CORONARY ANATOMY: Right dominant system. Right coronary is a moderate sized vessel, courses AV groove, distally, bifurcates in the posterior descending and posterolateral branches. No discrete stenoses noted. Left main without significant disease, bifurcates into left anterior descending, left circumflex. LAD is a moderate sized vessel, courses anterior intergroove, wraps around the apex, no significant disease. Left circumflex courses AV groove, gives off an OM trunk. No significant disease. Left main without disease. CONCLUSIONS: 1. No angiographic evidence of significant epicardial coronary disease in this right dominant system. 2. Severe global left ventricular hypokinesis with estimated ejection fraction of 20-25%. 3. Atrial fibrillation with controlled ventricular response. 4. No evidence of aortic stenosis. These findings re consistent with a severe dilated nonischemic cardiomyopathy of unclear etiology, atrial fibrillation could be causal. Heart rate control, goal directed therapy. RECOMMENDATIONS: Continue systemic anticoagulation. Results of procedure explained to the patient and family. All questions and concerns were addressed. TID: [id number] RECEIPT: [id number] SBShirley/KDA
--- NOTE | 2021-03-17 12:11 | Progress Note ---
Assessment and Plan Assessment and plan: --Acute systolic congestive heart failure; EF 20 to 25% Cardiology recommended ischemia work-up s/p cardiac catheterization today; Nonobstructive coronaries EF 20% Continue current cardiac medications --Dilated cardiomyopathy; EF 20 to 25%, dilated LV RV chambers Antifailure medications, diuretic, beta-blockers, CAIN inhibitors If patient blood pressure permits and okay with cardiology Cardiology following --A. fib with rapid ventricular rate; Rate controlled, continue metoprolol Full dose Lovenox[ Lovenox held pending left heart cath tomorrow --Acute gastritis/epigastric pain/dyspepsia Denies nausea' vomiting. Denies hematemesis or melena IV Protonix. Maalox. Patient really wanted to see dealer sales rep GI evaluation noted and appreciated --History of hypothyroidism; not on any medications Normal TSH, high T4, We will repeat thyroid panel --DVT prophylaxis; SCDs, Lovenox discontinued per cardiology pending left heart catheterization tomorrow We will closely monitor patient and adjust the management as needed Follow cardiology evaluation and recommendations Plan of care reviewed with the patient, on with sister on the phone and her nurse. Patient not convinced that she has any problems with her heart. She is only concerned about her epigastric pain and requested to be seen by GI We will consult on-call GI. Patient Ms. Lucas White had numerous questions, still not convinced that she has cardiomyopathy and A. fib Even after explaining in detail by the test boring crew chief and I spent a lot of time explaining, each test And reports of chest x-ray, CT abdomen and pelvis, echocardiogram, cardiology recommendations/ Patient does not believe that she has any heart problem. I discussed with the patient when patient sister is on speaker phone Brief history; 55-year-old female patient was admitted with A. fib with rapid ventricular rate, new onset cardiomyopathy with ejection fraction of 15 to 20% Acute gastritis, cardiology evaluated recommended left heart catheterization today, nonobstructive coronaries, dilated cardiomyopathy GI has evaluated the patient, no endoscopy planned at this point, continue conservative management Disposition; discharge when medically stable and cleared by test boring crew chief and other specialists History Interval history: I have seen and examined the patient at the bedside this morning Patient underwent left heart catheterization, nonobstructive coronaries Patient feels slightly better Complains of vague abdominal discomfort GI is following Vital signs noted Hospitalist Physical - Constitutional Vitals: Temp Pulse Resp BP Pulse Ox 98.2 F 75 18 135/80 95 03/17/21 08:16 03/17/21 08:16 03/17/21 08:16 03/17/21 08:16 03/17/21 08:16 General appearance: Present: no acute distress, well-nourished - EENT Eyes: Present: PERRL, EOM intact - Neck Neck: Present: supple, normal ROM - Respiratory Respiratory effort: normal Respiratory: bilateral: diminished, negative: rales, rhonchi, wheezing - Cardiovascular Rhythm: regular Heart Sounds: Present: S1 & S2 - Extremities Extremities: no ischemia Extremity abnormal: edema - Abdominal General gastrointestinal: soft, non-tender, non-distended, normal bowel sounds - Integumentary Integumentary: Present: clear, warm - Psychiatric Psychiatric: appropriate mood/affect, cooperative - Neurologic Neurologic: CNII-XII intact, moves all extremities HEART Score - HEART Score Troponin: Troponin T < 0.010 ng/mL (0.00-0.029) 03/15/21 12:39 Results - Labs CBC & Chem 7: 03/19/21 05:08 03/18/21 04:57 Labs: Laboratory Last Values WBC 5.4 K/mm3 (4.5-11.0) 03/17/21 06:12 RBC 4.27 M/mm3 (3.65-5.03) 03/17/21 06:12 Hgb 12.9 gm/dl (10.1-14.3) 03/17/21 06:12 Hct 37.7 % (30.3-42.9) 03/17/21 06:12 MCV 88 fl (79-97) 03/17/21 06:12 MCH 30 pg (28-32) 03/17/21 06:12 MCHC 34 % (30-34) 03/17/21 06:12 RDW 14.5 % (13.2-15.2) 03/17/21 06:12 Plt Count 164 K/mm3 (140-440) 03/17/21 06:12 Lymph % (Auto) 34.9 % (13.4-35.0) 03/17/21 06:12 [place] % (Auto) 8.1 % (0.0-7.3) H 03/17/21 06:12 Eos % (Auto) 4.0 % (0.0-4.3) 03/17/21 06:12 Baso % (Auto) 1.1 % (0.0-1.8) 03/17/21 06:12 Lymph # (Auto) 1.9 K/mm3 (1.2-5.4) 03/17/21 06:12 [place] # (Auto) 0.4 K/mm3 (0.0-0.8) 03/17/21 06:12 Eos # (Auto) 0.2 K/mm3 (0.0-0.4) 03/17/21 06:12 Baso # (Auto) 0.1 K/mm3 (0.0-0.1) 03/17/21 06:12 Seg Neutrophils % 51.9 % (40.0-70.0) 03/17/21 06:12 Seg Neutrophils # 2.8 K/mm3 (1.8-7.7) 03/17/21 06:12 PT 14.5 Sec. (12.2-14.9) 03/17/21 06:12 INR 1.07 (0.87-1.13) 03/17/21 06:12 APTT 34.8 Sec. (24.2-36.6) 03/15/21 03:00 Sodium 143 mmol/L (137-145) D 03/17/21 06:12 Potassium 4.4 mmol/L (3.6-5.0) 03/17/21 06:12 Chloride 107.0 mmol/L (98-107) 03/17/21 06:12 Carbon Dioxide 28 mmol/L (22-30) D 03/17/21 06:12 Anion Gap 12 mmol/L 03/17/21 06:12 BUN 12 mg/dL (7-17) 03/17/21 06:12 Creatinine 0.8 mg/dL (0.6-1.2) 03/17/21 06:12 Estimated GFR > 60 ml/min 03/17/21 06:12 BUN/Creatinine Ratio 15 % 03/17/21 06:12 Glucose 80 mg/dL (65-100) 03/17/21 06:12 Calcium 8.7 mg/dL (8.4-10.2) 03/17/21 06:12 Magnesium 1.80 mg/dL (1.7-2.3) 03/15/21 03:00 Total Bilirubin 1.50 mg/dL (0.1-1.2) H 03/15/21 03:00 AST 31 units/L (5-40) 03/15/21 03:00 ALT 21 units/L (7-56) 03/15/21 03:00 Alkaline Phosphatase 69 units/L (35-129) 03/15/21 03:00 Troponin T < 0.010 ng/mL (0.00-0.029) 03/15/21 12:39 Total Protein 6.8 g/dL (6.3-8.2) 03/15/21 03:00 Albumin 4.3 g/dL (3.9-5) 03/15/21 03:00 Albumin/Globulin Ratio 1.7 % 03/15/21 03:00 TSH 0.689 mlU/mL (0.270-4.200) 03/15/21 12:39 Free T4 1.48 ng/dL (0.76-1.46) H 03/15/21 12:39 Urine Color Yellow (Yellow) 03/15/21 05:46 Urine Turbidity Clear (Clear) 03/15/21 05:46 Urine pH 5.0 (5.0-7.0) 03/15/21 05:46 Ur Specific [place] 1.009 (1.003-1.030) 03/15/21 05:46 Urine Protein <15 mg/dl mg/dL (Negative) 03/15/21 05:46 Urine Glucose (UA) Neg mg/dL (Negative) 03/15/21 05:46 Urine Ketones Tr mg/dL (Negative) 03/15/21 05:46 Urine Blood Neg (Negative) 03/15/21 05:46 Urine Nitrite Neg (Negative) 03/15/21 05:46 Urine Bilirubin Neg (Negative) 03/15/21 05:46 Urine Urobilinogen < 2.0 mg/dL (<2.0) 03/15/21 05:46 Ur Leukocyte Esterase Neg (Negative) 03/15/21 05:46 Urine WBC (Auto) Not Reportable 03/15/21 05:46 Urine RBC (Auto) 3.0 /HPF (0.0-6.0) 03/15/21 05:46 U Epithel Cells (Auto) 4.0 /HPF (0-13.0) 03/15/21 05:46 Urine Bacteria (Auto) 1+ /HPF (Negative) 03/15/21 05:46 Urine HCG, Qual Negative (Negative) 03/15/21 05:46 [place]/IV: Voiding Method Toilet Active Medications - Current Medications Current Medications: Generic Name Dose Route Start Last Admin Trade Name Freq PRN Reason Stop Dose Admin Acetaminophen 650 mg 03/15/21 07:48 03/16/21 03:27 Acetaminophen 325 Mg Tab PO 650 mg Q4H PRN Administration Pain, Mild (1-3) Al Hydrox/Mg Hydrox/Simethicone 15 ml 03/15/21 10:00 Alum-Mag Hydroxide-Simethicone [id number]/5ml Oral Liqd 30 Ml PO Q4H PRN Indigestion Alprazolam 0.25 mg 03/16/21 17:37 Alprazolam 0.25 Mg Tab PO 03/18/21 06:00 QHS PRN Anxiety Aspirin 81 mg 03/17/21 10:00 03/17/21 11:31 Aspirin 81 Mg Tab Chew PO 81 mg QDAY LYUBOV Administration Diphenhydramine HCl 25 mg 03/17/21 09:30 03/17/21 09:41 Diphenhydramine 50 Mg/Ml Vial IV 03/17/21 17:30 25 mg ONCE LYUBOV Administration Famotidine 20 mg 03/17/21 10:00 03/17/21 09:39 Famotidine 20 Mg/2 Ml Inj IV 03/17/21 17:00 20 mg ONCE LYUBOV Administration Sodium Chloride 500 mls @ 50 mls/hr 03/17/21 10:00 Nacl 0.9% 500 Ml IV DIRECT LYUBOV Methylprednisolone Sodium Succinate 125 mg 03/17/21 09:30 03/17/21 09:37 Methylprednisolone Sod Succinate 125 Mg/2 Ml Inj IV 03/17/21 17:00 125 mg ONCE LYUBOV Administration Metoprolol Tartrate 25 mg 03/15/21 17:30 03/17/21 11:31 Metoprolol Tartrate 25 Mg Tab PO 25 mg BID LYUBOV Administration Pantoprazole Sodium 40 mg 03/15/21 10:00 03/17/21 11:31 Pantoprazole 40 Mg Inj IV 40 mg BID LYUBOV Administration Sucralfate 1 gm 03/17/21 12:00 Sucralfate 1 Gm/10 Ml Oral Liqd PO Q6HR LYUBOV
--- NOTE | 2021-03-17 13:58 | Gastroenterology Progress Note ---
Assessment and Plan - Patient Problems (1) Epigastric pain Current Visit: Yes Status: Acute Plan to address problem: # Epigastric pain - CT a/p without acute process - ddx including PUD, gastritis Rec - continue with PPI - added sucralfate for symptomatic treatment - hold off EGD given on-going cardiac work up for new diagnosis of cardiomyopathy with EF 20%. - will monitor for symptom relief with PPI and sucralfate. No signs of GI bleeding at this time. Subjective Date of service: 03/17/21 Principal diagnosis: Newly Diagnosed CMP (EF 10-15%) Interval history: Patient underwent LHC today. Reports feeling sleepy and numb. No vomiting. Objective - Constitutional Vitals: Temp Pulse Resp BP Pulse Ox 98.5 F 66 18 139/98 100 03/17/21 12:28 03/17/21 12:28 03/17/21 12:28 03/17/21 12:28 03/17/21 12:28 General appearance: no acute distress - EENT Eyes: EOM intact ENT: hearing intact - Cardiovascular Rhythm: irregularly irregular Heart Sounds: Present: S1 & S2 - Gastrointestinal General gastrointestinal: Present: soft, non-tender, non-distended, normal bowel sounds - Integumentary Integumentary: Present: warm - Labs CBC & Chem 7: 03/17/21 06:12 03/17/21 06:12 Labs: Laboratory Results - last 24 hr 03/17/21 03/17/21 03/17/21 06:12 06:12 06:12 WBC 5.4 RBC 4.27 Hgb 12.9 Hct 37.7 MCV 88 MCH 30 MCHC 34 RDW 14.5 Plt Count 164 Lymph % (Auto) 34.9 [place] % (Auto) 8.1 H Eos % (Auto) 4.0 Baso % (Auto) 1.1 Lymph # (Auto) 1.9 [place] # (Auto) 0.4 Eos # (Auto) 0.2 Baso # (Auto) 0.1 Seg Neutrophils % 51.9 Seg Neutrophils # 2.8 PT 14.5 INR 1.07 Sodium 143 D Potassium 4.4 Chloride 107.0 Carbon Dioxide 28 D Anion Gap 12 BUN 12 Creatinine 0.8 Estimated GFR > 60 BUN/Creatinine Ratio 15 Glucose 80 Calcium 8.7
[2021-03-17 15:11] LABS: Free T4 (Free Thyroxine) 1.31 ng/dL (0.76-1.46)
--- NOTE | 2021-03-17 17:50 | Progress Note ---
Assessment and Plan [facility] this AM revealed angiographically normal coronary arteries. 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 Initiate Eliquis for AF anticoagulation. Closely monitor for signs of bleeding given suspected gastric ulcer. Will start PO Amio 200mg BID at this time. If unsuccessful in maintaining SR with antiarrhythmic agents, may consider possible RONALDO/DCCV on Saturday. Will continue to optimize HF regimen. Lifestyle recommendations reinforced with pt during assessment today. Plan of care discussed extensively with pt and pt's family. All questions answered. Pt will need to be fitted with LifeVest prior to discharge. Order submitted to [facility]. Copy of order form placed in pt's chart for reference. Pt seen in conjunction with Dr. Judy Pearson, who agrees with the assessment and plan of care. - Patient Problems (1) Pleural effusion, bilateral Current Visit: Yes Status: Acute (2) Cardiomyopathy Current Visit: Yes Status: Acute (3) Normal coronary arteries Current Visit: Yes Status: Acute (4) Pulmonary HTN Current Visit: Yes Status: Chronic (5) Moderate mitral regurgitation Current Visit: Yes Status: Chronic (6) Atrial fibrillation Current Visit: Yes Status: Chronic Qualifiers: Atrial fibrillation type: unspecified chronic Qualified Code(s): I48.20 - Chronic atrial fibrillation, unspecified; I48.2 - Chronic atrial fibrillation (7) Thyroid disease Current Visit: Yes Status: Chronic (8) Epigastric pain Current Visit: Yes Status: Acute (9) GERD (gastroesophageal reflux disease) Current Visit: Yes Status: Chronic Subjective Date of service: 03/17/21 Principal diagnosis: Newly Diagnosed CMP (EF 10-15%) Interval history: S/p [facility] this AM, which revealed no evidence of significant epicardial coronary artery disease. Pt tolerated well. No complaints post-procedure. Tele reviewed - AF 70-90s, no events overnight. Objective Last Vital Signs Temp 98.3 F 03/17/21 16:53 Pulse 109 H 03/17/21 16:53 Resp 18 03/17/21 16:53 BP 128/97 03/17/21 16:53 Pulse Ox 98 03/17/21 16:53 - Physical Examination General: No Apparent Distress HEENT: Positive: EOMI, Normocephaly, Mucus Membranes Moist Neck: Positive: neck supple, trachea midline. Negative: JVD/HJR Cardiac: Positive: irregularly irregular, S1/S2 Lungs: Positive: Decreased Breath Sounds (bases) Neuro: Positive: Grossly Intact Abdomen: Positive: Soft Skin: Negative: Rash, Wound Musculoskeletal: No Pain Extremities: Present: upper extr. pulses, lower extr. pulses, warm. Absent: edema - Labs and Meds Coagulation 03/17/21 Range/Units 06:12 PT 14.5 (12.2-14.9) Sec. INR 1.07 (0.87-1.13) CBC 03/17/21 Range/Units 06:12 WBC 5.4 (4.5-11.0) K/mm3 RBC 4.27 (3.65-5.03) M/mm3 Hgb 12.9 (10.1-14.3) gm/dl Hct 37.7 (30.3-42.9) % Plt Count 164 (140-440) K/mm3 Lymph # (Auto) 1.9 (1.2-5.4) K/mm3 [place] # (Auto) 0.4 (0.0-0.8) K/mm3 Eos # (Auto) 0.2 (0.0-0.4) K/mm3 Baso # (Auto) 0.1 (0.0-0.1) K/mm3 Comprehensive Metabolic Panel 03/17/21 Range/Units 06:12 Sodium 143 D (137-145) mmol/L Potassium 4.4 (3.6-5.0) mmol/L Chloride 107.0 (98-107) mmol/L Carbon Dioxide 28 D (22-30) mmol/L BUN 12 (7-17) mg/dL Creatinine 0.8 (0.6-1.2) mg/dL Glucose 80 (65-100) mg/dL Calcium 8.7 (8.4-10.2) mg/dL - Imaging and Cardiology EKG: report reviewed, image reviewed Echo: report reviewed (03/15/2021 - EF 20-25%, LV mildly dilated, LA mildly dilated, RA mildly dilated, mild AR, moderate MR, moderate TR, moderate pulm HTN w/RVSP 46mmHg) Cardiac cath: report reviewed (03/17/2021 - no evidence of significant epicardiac coronary artery disease) - Telemetry EKG Rhythm: Atrial Fibrillation - EKG Supraventricular dysrhythmia: atrial fibrillation
--- NOTE | 2021-03-17 18:13 | Electrocardiograph Report ---
[facility] Test Date: 2021-03-17 Test Time: 06:54:06 Pat Name: LAURIE MEDINA Department: Room: A490 1 Gender: F Correctional Guard: QI : 1965 Requested By: ADITYA VILLALBA Order Number: [id number] Reading MD: Katelyn Lopez Measurements Intervals [place] Rate: 73 P: HI: QRS: 45 QRSD: 81 T: -44 QT: 390 QTc: 430 Interpretive Statements Atrial fibrillation Consider left ventricular hypertrophy Compared to ECG 03/15/2021 03:36:58 No significant changes Electronically Signed On 03-17-2021 18:12:53 EDT by Katelyn Lopez
[2021-03-17] MEDS: APIXABAN 5 MG TAB PO SCH (22:16)
[2021-03-17] MEDS: AMIODARONE 200 MG TAB PO SCH (22:16)
[2021-03-17] MEDS: SUCRALFATE 1 GM/10 ML ORAL LIQD PO SCH (22:19)
[2021-03-18 05:34] LABS: Blood Urea Nitrogen 14 mg/dL (7-17); Hemolysis Index 22
[2021-03-18 05:37] LABS: BUN/Creatinine Ratio 20
[2021-03-18] MEDS: FUROSEMIDE 20 MG TAB PO SCH (05:41)
[2021-03-18] MEDS: SUCRALFATE 1 GM/10 ML ORAL LIQD PO SCH ×5 (05:42→17:13)
[2021-03-18] MEDS: ASPIRIN 81 MG TAB CHEW PO SCH (11:27)
[2021-03-18] MEDS: METOPROLOL TARTRATE 25 MG TAB PO SCH ×2 (11:27→21:57)
[2021-03-18] MEDS: APIXABAN 5 MG TAB PO SCH ×2 (11:27→21:57)
[2021-03-18] MEDS: LISINOPRIL 5 MG TAB PO SCH (11:27)
[2021-03-18] MEDS: PANTOPRAZOLE 40 MG INJ IV SCH ×2 (11:27→21:57)
[2021-03-18] MEDS: AMIODARONE 200 MG TAB PO SCH (11:28)
--- NOTE | 2021-03-18 11:28 | Progress Note ---
Assessment and Plan Patient is clinically stable now. She has a severe dilated nonischemic cardiomyopathy which is well compensated at this point. Cardiac cath yesterday revealed normal coronaries. Had a long discussion with the patient today. We will proceed with RONALDO/cardioversion on Saturday morning. Awaiting LifeVest. Continue current medications including Eliquis. - Patient Problems (1) Atrial fibrillation with RVR Current Visit: Yes Status: Acute (2) Cardiomyopathy Current Visit: Yes Status: Acute (3) Normal coronary arteries Current Visit: Yes Status: Acute (4) Atrial fibrillation Current Visit: Yes Status: Chronic Qualifiers: Atrial fibrillation type: unspecified chronic Qualified Code(s): I48.20 - Chronic atrial fibrillation, unspecified; I48.2 - Chronic atrial fibrillation (5) Moderate mitral regurgitation Current Visit: Yes Status: Chronic (6) Pulmonary HTN Current Visit: Yes Status: Chronic Subjective Principal diagnosis: Newly Diagnosed CMP (EF 10-15%) Interval history: No new complaints. Objective Vital Signs Temp Pulse Resp BP Pulse Ox 03/18/21 04:30 98.6 F 104 H 18 124/90 99 03/17/21 23:35 98.8 F 110 H 18 123/85 94 03/17/21 22:16 87 110/78 03/17/21 22:00 110 H 03/17/21 20:30 97.5 F L 87 15 110/78 100 03/17/21 16:53 98.3 F 109 H 18 128/97 98 03/17/21 13:15 98.2 F 78 18 136/90 100 03/17/21 12:28 98.5 F 66 18 139/98 100 03/17/21 12:25 76 18 128/84 100 - Physical Examination General: No Apparent Distress HEENT: Positive: EOMI, Normocephaly, Mucus Membranes Moist Neck: Positive: neck supple, trachea midline. Negative: JVD/HJR Neuro: Positive: Grossly Intact Abdomen: Positive: Soft Skin: Negative: Rash, Wound Musculoskeletal: No Pain Extremities: Present: upper extr. pulses, lower extr. pulses, warm. Absent: edema - Labs and Meds Comprehensive Metabolic Panel 03/18/21 Range/Units 04:57 Sodium 142 (137-145) mmol/L Potassium 4.9 (3.6-5.0) mmol/L Chloride 107.0 (98-107) mmol/L Carbon Dioxide 27 (22-30) mmol/L BUN 14 (7-17) mg/dL Creatinine 0.7 (0.6-1.2) mg/dL Glucose 99 (65-100) mg/dL Calcium 9.0 (8.4-10.2) mg/dL - Imaging and Cardiology EKG: report reviewed, image reviewed Echo: report reviewed (03/15/2021 - EF 20-25%, LV mildly dilated, LA mildly dilated, RA mildly dilated, mild AR, moderate MR, moderate TR, moderate pulm HTN w/RVSP 46mmHg) Cardiac cath: report reviewed (03/17/2021 - no evidence of significant epicardiac coronary artery disease)
--- NOTE | 2021-03-18 17:56 | Gastroenterology Progress Note ---
Assessment and Plan - Patient Problems (1) Epigastric pain Current Visit: Yes Status: Acute Plan to address problem: # Epigastric pain - CT a/p without acute process - ddx including PUD, gastritis Rec - continue with PPI - added sucralfate for symptomatic treatment - hold off EGD given on-going cardiac work up for new diagnosis of cardiomyopathy with EF 20%. Patient planned for RONALDO with cardioversion for Afib on Saturday. Currently on eliquis. - follow up as outpatient. - will sign off. please call with questions Subjective Date of service: 03/18/21 Principal diagnosis: Newly Diagnosed CMP (EF 10-15%) Interval history: Patient's abdominal pain improving. No nausea/vomiting. Tolerating diet. Objective - Constitutional Vitals: Temp Pulse Resp BP Pulse Ox 98.9 F 74 18 123/83 100 03/18/21 16:07 03/18/21 16:07 03/18/21 16:07 03/18/21 16:07 03/18/21 16:07 General appearance: no acute distress - EENT Eyes: EOM intact ENT: hearing intact - Respiratory Respiratory effort: normal - Cardiovascular Rhythm: irregularly irregular - Gastrointestinal General gastrointestinal: Present: soft, tender, non-distended, normal bowel sounds - Neurologic Neurological: alert and oriented x3 - Labs CBC & Chem 7: 03/17/21 06:12 03/18/21 04:57 Labs: Laboratory Results - last 24 hr 03/18/21 04:57 Sodium 142 Potassium 4.9 Chloride 107.0 Carbon Dioxide 27 Anion Gap 13 BUN 14 Creatinine 0.7 Estimated GFR > 60 BUN/Creatinine Ratio 20 Glucose 99 Calcium 9.0 Magnesium 1.80
[2021-03-19] MEDS: SUCRALFATE 1 GM/10 ML ORAL LIQD PO SCH ×4 (00:58→17:16)
[2021-03-19 05:31] LABS: Hematocrit 37.4 % (30.3-42.9); Hemoglobin 12.7 gm/dl (10.1-14.3); Mean Corpuscular HGB Conc 34 % (30-34); Mean Corpuscular Volume 89 fl (79-97); Platelet Count 169 K/mm3 (140-440); Red Blood Count 4.18 M/mm3 (3.65-5.03); Red Cell Distribution Width 14.8 % (13.2-15.2)
[2021-03-19] MEDS: FUROSEMIDE 20 MG TAB PO SCH (06:24)
--- NOTE | 2021-03-19 07:55 | Progress Note ---
Assessment and Plan Assessment and Plan Assessment and plan: --Acute systolic congestive heart failure; EF 20 to 25% Cardiology recommended ischemia work-up s/p cardiac catheterization today; Nonobstructive coronaries EF 20% Continue current cardiac medications --Dilated cardiomyopathy; EF 20 to 25%, dilated LV RV chambers Antifailure medications, diuretic, beta-blockers, CAIN inhibitors If patient blood pressure permits and okay with cardiology Cardiology following --A. fib with rapid ventricular rate; Rate controlled, continue metoprolol Full dose Lovenox[ Lovenox held pending left heart cath tomorrow --Acute gastritis/epigastric pain/dyspepsia Denies nausea' vomiting. Denies hematemesis or melena IV Protonix. Maalox. 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 Patient not convinced that she has any problems with her heart. She is only concerned about her epigastric pain and requested to be seen by GI We will consult on-call GI. Patient Ms. Lucas White had numerous questions, still not convinced that she has cardiomyopathy and A. fib Even after explaining in detail by the knockout man and I spent a lot of time explaining, each test And reports of chest x-ray, CT abdomen and pelvis, echocardiogram, cardiology recommendations/ Patient does not believe that she has any heart problem. I discussed with the patient when patient sister is on speaker phone Subjective Date of service: 03/18/21 Principal diagnosis: Newly Diagnosed CMP (EF 10-15%) Interval history: Brief history; 55-year-old female patient was admitted with A. fib with rapid ventricular rate, new onset cardiomyopathy with ejection fraction of 15 to 20% Acute gastritis, cardiology evaluated recommended left heart catheterization today, nonobstructive coronaries, dilated cardiomyopathy GI has evaluated the patient, no endoscopy planned at this point, continue conservative management Patient not convinced that she has any problems with her heart. She is only concerned about her epigastric pain and requested to be seen by GI We will consult on-call GI. Patient Ms. Lucas White had numerous questions, still not convinced that she has cardiomyopathy and A. fib Even after explaining in detail by the knockout man and I spent a lot of time explaining, each test And reports of chest x-ray, CT abdomen and pelvis, echocardiogram, cardiology recommendations/ Patient does not believe that she has any heart problem. I discussed with the patient when patient sister is on speaker phone Objective - Constitutional Vitals: Vital Signs - 12hr 03/18/21 03/18/21 03/18/21 21:05 21:57 23:34 Temperature 97.2 F L Pulse Rate 85 70 74 Respiratory 18 Rate Blood Pressure 130/99 131/89 O2 Sat by Pulse 100 Oximetry 03/19/21 03:53 Temperature 98.1 F Pulse Rate 77 Respiratory 18 Rate Blood Pressure 139/82 O2 Sat by Pulse 100 Oximetry General appearance: Present: no acute distress, well-nourished - EENT Eyes: PERRL, EOM intact ENT: hearing intact, clear oral mucosa Ears: bilateral: normal - Neck Neck: supple, normal ROM - Respiratory Respiratory effort: normal Respiratory: bilateral: CTA - Breasts Breasts: normal - Cardiovascular Heart rate: 120 Rhythm: regular Heart Sounds: Present: S1 & S2. Absent: gallop, rub Extremities: pulses intact, No edema, normal color, Full ROM - Gastrointestinal General gastrointestinal: Present: soft, non-tender, non-distended, normal bowel sounds - Genitourinary Female genitourinary: normal - Integumentary Integumentary: clear, warm, dry - Musculoskeletal Musculoskeletal: 1, strength equal bilaterally - Neurologic Neurologic: moves all extremities - Psychiatric Psychiatric: memory intact, appropriate mood/affect, intact judgment & insight - Labs CBC & Chem 7: 03/19/21 05:08 03/20/21 05:51 HEART Score - HEART Score Troponin: Troponin T < 0.010 ng/mL (0.00-0.029) 03/15/21 12:39
[2021-03-19] MEDS: ASPIRIN 81 MG TAB CHEW PO SCH (09:25)
[2021-03-19] MEDS: LISINOPRIL 5 MG TAB PO SCH (09:27)
[2021-03-19] MEDS: PANTOPRAZOLE 40 MG INJ IV SCH (09:27)
[2021-03-19] MEDS: METOPROLOL TARTRATE 25 MG TAB PO SCH ×2 (09:27→21:47)
[2021-03-19] MEDS: APIXABAN 5 MG TAB PO SCH ×2 (10:12→21:47)
--- NOTE | 2021-03-19 11:44 | Progress Note ---
Assessment and Plan Patient is clinically stable now. She has a severe dilated nonischemic cardiomyopathy which is well compensated at this point. Cardiac cath on Saturday revealed normal coronaries. Had a long discussion with the patient today. We will proceed with RONALDO/cardioversion tomorrow morning. Awaiting LifeVest. Continue current medications including Eliquis. - Patient Problems (1) Atrial fibrillation with RVR Current Visit: Yes Status: Acute (2) Cardiomyopathy Current Visit: Yes Status: Acute (3) Normal coronary arteries Current Visit: Yes Status: Acute (4) Atrial fibrillation Current Visit: Yes Status: Chronic Qualifiers: Atrial fibrillation type: unspecified chronic Qualified Code(s): I48.20 - Chronic atrial fibrillation, unspecified; I48.2 - Chronic atrial fibrillation (5) Moderate mitral regurgitation Current Visit: Yes Status: Chronic (6) Pulmonary HTN Current Visit: Yes Status: Chronic Subjective Principal diagnosis: Newly Diagnosed CMP (EF 10-15%) Interval history: No new complaints. Objective Vital Signs Temp Pulse Resp BP BP Pulse Ox 03/19/21 09:27 86 132/102 03/19/21 08:36 140/101 03/19/21 08:14 97.1 F L 86 19 132/102 98 03/19/21 07:52 77 03/19/21 03:53 98.1 F 77 18 139/82 100 03/18/21 23:34 97.2 F L 74 18 131/89 100 03/18/21 21:57 70 130/99 03/18/21 21:05 85 03/18/21 19:54 97.7 F 70 18 130/99 100 03/18/21 16:07 98.9 F 74 18 123/83 100 03/18/21 12:20 97.3 F L 76 18 137/86 100 - Physical Examination General: No Apparent Distress HEENT: Positive: EOMI, Normocephaly, Mucus Membranes Moist Neck: Positive: neck supple, trachea midline. Negative: JVD/HJR Neuro: Positive: Grossly Intact Abdomen: Positive: Soft Skin: Negative: Rash, Wound Musculoskeletal: No Pain Extremities: Present: upper extr. pulses, lower extr. pulses, warm. Absent: edema - Labs and Meds CBC 03/19/21 Range/Units 05:08 WBC 6.9 (4.5-11.0) K/mm3 RBC 4.18 (3.65-5.03) M/mm3 Hgb 12.7 (10.1-14.3) gm/dl Hct 37.4 (30.3-42.9) % Plt Count 169 (140-440) K/mm3 - Imaging and Cardiology EKG: report reviewed, image reviewed Echo: report reviewed (03/15/2021 - EF 20-25%, LV mildly dilated, LA mildly dilated, RA mildly dilated, mild AR, moderate MR, moderate TR, moderate pulm HTN w/RVSP 46mmHg) Cardiac cath: report reviewed (03/17/2021 - no evidence of significant epicardiac coronary artery disease)
[2021-03-19] MEDS: PANTOPRAZOLE 40 MG TAB PO SCH (16:11)
[2021-03-20] MEDS: SUCRALFATE 1 GM/10 ML ORAL LIQD PO SCH ×4 (00:45→17:53)
--- NOTE | 2021-03-20 02:57 | Progress Note ---
Assessment and Plan Assessment and Plan Assessment and plan: --Acute systolic congestive heart failure; EF 20 to 25% Cardiology recommended ischemia work-up s/p cardiac catheterization today; Nonobstructive coronaries EF 20% Continue current cardiac medications --Dilated cardiomyopathy; EF 20 to 25%, dilated LV RV chambers Antifailure medications, diuretic, beta-blockers, CAIN inhibitors If patient blood pressure permits and okay with cardiology Cardiology following --A. fib with rapid ventricular rate; Rate controlled to 80 today Rate controlled, continue metoprolol Full dose Lovenox[ Lovenox held pending left heart cath tomorrow Patient is refusing left heart cath Willing to get LifeVest --Acute gastritis/epigastric pain/dyspepsia Denies nausea' vomiting. Denies hematemesis or melena IV Protonix. Maalox. Patient really wanted to see liquefaction and regasification helper GI evaluation noted and appreciated --History of hypothyroidism; not on any medications Normal TSH, high T4, We will repeat thyroid panel --DVT prophylaxis; SCDs, Lovenox discontinued per cardiology pending left heart catheterization tomorrow We will closely monitor patient and adjust the management as needed Follow cardiology evaluation and recommendations Plan of care reviewed with the patient, on with sister on the phone and her nurse. Patient not convinced that she has any problems with her heart. She is only concerned about her epigastric pain Subjective Date of service: 03/19/21 Principal diagnosis: Newly Diagnosed CMP (EF 10-15%) Interval history: Subjective Date of service: 03/19/21 Principal diagnosis: Newly Diagnosed CMP (EF 10-15%) Interval history: Brief history; 55-year-old female patient was admitted with A. fib with rapid ventricular rate, new onset cardiomyopathy with ejection fraction of 15 to 20% Acute gastritis, cardiology evaluated recommended left heart catheterization today, nonobstructive coronaries, dilated cardiomyopathy GI has evaluated the patient, no endoscopy planned at this point, continue conservative management Patient not convinced that she does not have any problems with her heart. She is only concerned about her epigastric pain and requested to be seen by GI We will consult on-call GI. 03/19/2021 Patient does not believe that she has CHF and does not believe echocardiogram results. She says that the guards report is better than the echocardiogram report. Patient willing to get the LifeVest Objective - Constitutional Vitals: Vital Signs - 12hr 03/19/21 03/19/21 03/19/21 19:30 21:47 22:00 Temperature 98.3 F Pulse Rate 76 76 80 Respiratory 16 Rate Blood Pressure 119/77 119/77 O2 Sat by Pulse 99 Oximetry 03/19/21 22:57 Temperature 98.2 F Pulse Rate 75 Respiratory 16 Rate Blood Pressure 142/95 O2 Sat by Pulse 100 Oximetry General appearance: Present: no acute distress, well-nourished - EENT Eyes: PERRL, EOM intact ENT: hearing intact, clear oral mucosa Ears: bilateral: normal - Neck Neck: supple, normal ROM - Respiratory Respiratory effort: normal Respiratory: bilateral: CTA - Breasts Breasts: normal - Cardiovascular Heart rate: 100 Rhythm: regular Heart Sounds: Present: S1 & S2. Absent: gallop, rub Extremities: pulses intact, No edema, normal color, Full ROM - Gastrointestinal General gastrointestinal: Present: soft, non-tender, non-distended, normal bowel sounds - Genitourinary Female genitourinary: normal - Integumentary Integumentary: clear, warm, dry - Musculoskeletal Musculoskeletal: 1, strength equal bilaterally - Neurologic Neurologic: moves all extremities - Psychiatric Psychiatric: memory intact, appropriate mood/affect, intact judgment & insight - Labs CBC & Chem 7: 03/19/21 05:08 03/20/21 05:51 HEART Score - HEART Score Troponin: Troponin T < 0.010 ng/mL (0.00-0.029) 03/15/21 12:39
[2021-03-20] MEDS: FUROSEMIDE 20 MG TAB PO SCH (06:24)
[2021-03-20 08:26] VITALS: BP 122/88
[2021-03-20] MEDS: METOPROLOL TARTRATE 25 MG TAB PO SCH (11:41)
[2021-03-20] MEDS: APIXABAN 5 MG TAB PO SCH (11:42)
[2021-03-20] MEDS: PANTOPRAZOLE 40 MG TAB PO SCH ×2 (11:42→17:53)
[2021-03-20] MEDS: LISINOPRIL 5 MG TAB PO SCH (11:42)
--- NOTE | 2021-03-20 13:11 | Progress Note ---
Assessment and Plan Patient is refusing recommended RONALDO this a.m. She is upset and does not agree with diagnosis of severe cardiomyopathy, per patient she "jumped around for several minutes and was unable to elicit symptoms of chest pain or shortness of breath, and has no signs of heart failure i.e. pedal edema." Of note severely reduced ejection fraction is observed on echocardiogram and on left heart cath. Patient states she intends to follow-up with another cardiology group for second opinion. Patient wishes to be discharged immediately. Atrial fibrillation with RVR in setting of Severe CMP 20-25% * Patient is currently chest pain-free with no cardiac complaints. Twelve-lead reviewed shows atrial fibrillation with RVR, no acute ischemic changes. Troponin is negative x2. AMI is ruled out. * Echocardiogram reviewed (03/15/2021): LVEF is 20 to 25%. LV is mildly dilated. LV SF is severely decreased. Severe global hypokinesis of the left ve ntricle. Left ventricular diastolic function is indeterminate. Right ventricle is grossly normal in size. LA and RA are mildly dilated. Mild AR. Moderate MR. Moderate TR. RVSP is 46 mmHg. Moderate pulmonary hypertension. * LHC (03/17/2021): Normal coronary arteries. Estimated EF 20 to 25%. * Life Vest placed today by [employer] displays sales representative. * Recommend continuation of metoprolol 25 mg p.o. twice daily for rate control and Eliquis 5 mg twice daily for anticoagulation. * Recommend GDMT: ASA 81 mg, statin pending lipid panel, beta-eber, CAIN inhibitor. Dyspepsia * Management per primary team. No plans for inpatient endoscopy at this point DVT prophylaxis * Lovenox SQ Patient may discharge from cardiology standpoint. Will follow on as-needed basis. Patient may schedule follow-up with Dr Judy Pearson, [facility] heart specialists as needed. #[phone] Recommend she follow-up with compensation vice president of her choice within 1 to 2 weeks of discharge. This patient was seen in conjunction with Dr Costa who agrees with this assessment and plan of care - Patient Problems (1) DVT prophylaxis Current Visit: Yes Status: Acute (2) Atrial fibrillation with RVR Current Visit: Yes Status: Acute (3) Dyspepsia Current Visit: Yes Status: Acute Subjective Date of service: 03/20/21 Principal diagnosis: Newly Diagnosed CMP (EF 10-15%) Interval history: Patient is resting comfortably in bed. No shortness of breath or chest pain overnight Telemetry reviewed: A. fib 80s. No events Objective Last Vital Signs Temp 97.7 F 03/20/21 07:55 Pulse 66 03/20/21 07:55 Resp 16 03/20/21 07:55 BP 122/88 03/20/21 07:55 Pulse Ox 97 03/20/21 07:55 - Physical Examination General: No Apparent Distress HEENT: Positive: EOMI, Normocephaly, Mucus Membranes Moist Neck: Positive: neck supple, trachea midline. Negative: JVD/HJR Cardiac: Positive: Reg Rate and Rhythm Lungs: Positive: Normal Exam, Normal Breath Sounds Neuro: Positive: Grossly Intact Abdomen: Positive: Soft Skin: Negative: Rash, Wound Musculoskeletal: No Pain Extremities: Present: upper extr. pulses, lower extr. pulses, warm. Absent: edema - Labs and Meds Comprehensive Metabolic Panel 03/20/21 Range/Units 05:51 Creatinine 0.8 (0.6-1.2) mg/dL - Imaging and Cardiology EKG: report reviewed, image reviewed Echo: report reviewed (03/15/2021 - EF 20-25%, LV mildly dilated, LA mildly dilated, RA mildly dilated, mild AR, moderate MR, moderate TR, moderate pulm HTN w/RVSP 46mmHg) Cardiac cath: report reviewed (03/17/2021 - no evidence of significant epicardiac coronary artery disease) - Telemetry EKG Rhythm: Atrial Fibrillation - EKG Sinus rhythms and dysrhythmias: sinus rhythm
--- NOTE | 2021-03-20 16:55 | Discharge Summary ---
Providers - Providers Date of Admission: 03/16/21 11:13 Date of discharge: 03/20/21 Attending physician: GILLIAN MARAVILLA 03/15/21 09:24 Consult to Physician [CONS] Routine Comment: Consulting Provider: AMANDA FLORENTINO Physician Instructions: Reason For Exam: A. fib with rapid ventricular rate 03/16/21 15:10 Consult to Physician [CONS] Routine Comment: Consulting Provider: CASS RIDLEY Physician Instructions: Reason For Exam: Acute gastritis/dyspepsia 03/17/21 15:51 Consult to Case Management [CONS] Routine Services Needed at Discharge: [employer] Planning Notified:: geriatric case manager Comment:: Pt requesting to speak with Case Mgmt about disability application process Primary care physician: PRECISION LENS TECHNICIAN Hospitalization Condition: Good Hospital course: Subjective Date of service: 03/20/21 Principal diagnosis: Newly Diagnosed CMP (EF 10-15%) Interval history: Brief history; 55-year-old female patient was admitted with A. fib with rapid ventricular rate, new onset cardiomyopathy with ejection fraction of 15 to 20% Acute gastritis, cardiology evaluated recommended left heart catheterization today, nonobstructive coronaries, dilated cardiomyopathy GI has evaluated the patient, no endoscopy planned at this point, continue conservative management Patient not convinced that she does not have any problems with her heart. She is only concerned about her epigastric pain and requested to be seen by GI We will consult on-call GI. 03/19/2021 Patient does not believe that she has CHF and does not believe echocardiogram results. She says that the guards report is better than the echocardiogram report. Patient willing to get the LifeVest 03/20/2021 Patient more comfortable Had a long discussion with her about her ejection fraction being low Patient does not believe that she has a heart problem Patient willing to wear the LifeVest Patient wants to get a second opinion Patient was referred both to [facility] and [facility] to get to opinions. Patient being discharged on CHF medications and medications for blood pressure and A. fib and peptic ulcer disease. Assessment and Plan Assessment and plan: --Acute systolic congestive heart failure; EF 20 to 25% Cardiology recommended ischemia work-up s/p cardiac catheterization today; Nonobstructive coronaries EF 20% Continue current cardiac medications --Dilated cardiomyopathy; EF 20 to 25%, dilated LV RV chambers Antifailure medications, diuretic, beta-blockers, CAIN inhibitors If patient blood pressure permits and okay with cardiology Cardiology following --A. fib with rapid ventricular rate; Rate controlled to 80 today Rate controlled, continue metoprolol Full dose Lovenox[ Lovenox held pending left heart cath tomorrow Patient is refusing left heart cath Willing to get LifeVest --Acute gastritis/epigastric pain/dyspepsia Denies nausea' vomiting. Denies hematemesis or melena IV Protonix. Maalox. Patient really wanted to see manager military GI evaluation noted and appreciated --History of hypothyroidism; not on any medications Normal TSH, high T4, We will repeat thyroid panel --DVT prophylaxis; SCDs, Lovenox discontinued per cardiology pending left heart catheterization tomorrow We will closely monitor patient and adjust the management as needed Follow cardiology evaluation and recommendations Plan of care reviewed with the patient, on with sister on the phone and her nurse. Patient not convinced that she has any problems with her heart. She is only concerned about her epigastric pain Disposition: TO HOME OR SELFCARE Final Discharge Diagnosis (Prints w/discharge instructions): CHF exacerbation. Atrial fibrillation with rapid ventricular rate. Peptic ulcer disease. Hypertension Time spent for discharge: 35 minutes - Discharge Diagnoses (1) Atrial fibrillation with RVR Status: Acute (2) Cardiomyopathy Status: Acute Core Measure Documentation - Palliative Care Palliative Care/ Comfort Measures: Not Applicable - Core Measures Any of the following diagnoses?: heart failure - Heart Failure Discharge Requirements CAIN/ARB for LVSD if EF <40%: Yes Beta eber at discharge: Yes Exam - Constitutional Vitals: Temp Pulse Resp BP Pulse Ox 97.7 F 66 16 122/88 97 03/20/21 07:55 03/20/21 07:55 03/20/21 07:55 03/20/21 07:55 03/20/21 07:55 General appearance: Present: no acute distress, well-nourished - EENT Eyes: Present: PERRL ENT: hearing intact, clear oral mucosa - Neck Neck: Present: supple, normal ROM - Respiratory Respiratory effort: normal Respiratory: bilateral: CTA, rales - Cardiovascular Heart rate: 82 Rhythm: irregularly irregular Heart Sounds: Present: S1 & S2. Absent: rub, click - Extremities Extremities: pulses symmetrical, No edema Peripheral Pulses: within normal limits - Abdominal General gastrointestinal: Present: soft, non-tender, non-distended, normal bowel sounds Female genitourinary: Present: normal - Integumentary Integumentary: Present: clear, warm, dry - Musculoskeletal Musculoskeletal: gait normal, strength equal bilaterally - Psychiatric Psychiatric: appropriate mood/affect, intact judgment & insight - Neurologic Neurologic: CNII-XII intact, moves all extremities Plan Activity: no restrictions, advance as tolerated Diet: low salt Special Instructions: restrict fluid intake to (one liter) Follow up with: PRIMARY CAREMD [Primary Care Provider] - 3-5 Days BING PARNELL MD [Staff Physician] - 7 Days JOSÉ MIGUEL TOLEDO MD [Staff Physician] - 7 Days Prescriptions: Aspirin [Aspirin BABY CHEW TAB] 81 mg PO QDAY #100 tab.chew Sucralfate [Carafate] 1 gm PO Q6HR #120 oral.liqd Apixaban [Eliquis] 5 mg PO Q12HR #60 tablet Potassium Chloride [K-Dur] 10 meq PO QDAY #30 tablet Furosemide [Lasix] 20 mg PO QDAY #30 tablet Metoprolol [Lopressor TAB] 25 mg PO BID #60 tablet Pantoprazole [Protonix TAB] 40 mg PO BIDAC #60 tablet lisinopriL [Zestril TAB] 2.5 mg PO QDAY #30 tablet
[2021-03-20] MEDS ORDERED: ASPIRIN 81 MG TAB CHEW PO SCH (18:00)
== END 2021-03-20 18:05 | disposition home or self-care (01) | DRG 287 ==
LOC: ED 03:19 → 4A 05:22 → OBSVTOIN 03-16 11:13
PROVIDERS: ADMIT Internal Medicine Geriatric Medicine; ATTEND Internal Medicine
PROC: 4A023N7 Measurement of Cardiac Sampling and Pressure, Left Heart, Percutaneous Approach (ICD-10-PCS; principal; 2021-03-17)
PROC: B2111ZZ Fluoroscopy of Multiple Coronary Arteries using Low Osmolar Contrast (ICD-10-PCS; 2021-03-17)
PROC: B2151ZZ Fluoroscopy of Left Heart using Low Osmolar Contrast (ICD-10-PCS; 2021-03-17)
DX: I50.21 Acute systolic (congestive) heart failure (principal); I42.0 Dilated cardiomyopathy; I48.91 Unspecified atrial fibrillation; K21.9 Gastro-esophageal reflux disease without esophagitis; E03.9 Hypothyroidism, unspecified; K29.00 Acute gastritis without bleeding; K27.9 Peptic ulcer, site unspecified, unspecified as acute or chronic, without hemorrhage or perforation; Z82.49 Family history of ischemic heart disease and other diseases of the circulatory system; Z90.710 Acquired absence of both cervix and uterus
CPT/HCPCS: 36415; 71045; 74177; 80048; 80053; 81001; 81025; 82565; 83735; 84439; 84443; 84484; 85025; 85027; 85610; 85730; 93005; 93306; 93458; 96374; 96375; G0378; C1894; C9113; J1200; J1644; J1650; J1940; J2250; J2930; J3010; J7030; J7040; Q9967